=== PATIENT | male | born 1965 | race Caucasian/White ===

== ENCOUNTER → 2017-03-19 | Outpatient (CLI) | payer OTHER ==
[~2017-03-19] MED LIST: AMIO200T PO; ASCO10003 PO; ASPI-110 PO; COEN100T PO; FISH1000 PO; FURO40TA PO; LOSA50TA PO; METO25TA3 PO; PRAV80TA2 PO; SPIR25TA PO; VITA400C2 PO; VITA400C5 PO; XANA1TAB2 PO; XARE20TA PO
[2017-03-19 12:44] LABS: AUTOMATED NEUTROPHIL # 6.6 TH/MM3 (1.8-7.7); BASOPHIL # 0.1 TH/MM3 (0-0.2); BASOPHIL % 0.8 % (0.0-2.0); EOSINOPHIL # 0.1 TH/MM3 (0-0.4); EOSINOPHIL % 1.2 % (0.0-4.0); HEMATOCRIT 46.4 % (39.0-51.0); HEMO FLAGS DIFF FINAL; LYMPH % 27.4 % (9.0-44.0); LYMPHOCYTE # 2.9 TH/MM3 (1.0-4.8); MEAN CORPUSCULAR HEMOGLOBIN 33.6 PG (27.0-34.0); MEAN CORPUSCULAR HGB CONC 34.7 % (32.0-36.0); MONO % 8.9 % (0.0-8.0); NEUT % 61.7 % (16.0-70.0); PLATELET COUNT 246 TH/MM3 (150-450); RED BLOOD COUNT 4.78 MIL/MM3 (4.50-5.90); RED CELL DISTRIBUTION WIDTH 13.3 % (11.6-17.2); WHITE BLOOD COUNT 10.7 TH/MM3 (4.0-11.0)
[2017-03-19 13:20] LABS: ALT (GPT) 43 U/L (12-78)
[2017-03-19 13:25] LABS: ANION GAP 7 MEQ/L (5-15); AST (GOT) 34 U/L (15-37); BICARBONATE 25.6 MEQ/L (21.0-32.0); BLOOD UREA NITROGEN 12 MG/DL (7-18); CHLORIDE 100 MEQ/L (98-107); GLOMERULAR FILTRATION RATE 97 ML/MIN (>89); GLUCOSE,FASTING 93 MG/DL (74-99); SODIUM (NA) 133 MEQ/L (136-145)
[2017-03-19 13:30] LABS: ALKALINE PHOSPHATASE 97 U/L (45-117); HDL CHOLESTEROL 49.7 MG/DL (40.0-60.0); LDL CHOLESTEROL 95 MG/DL (0-99); TOTAL BILIRUBIN ADULT 0.6 MG/DL (0.2-1.0)
== END ==
LOC: CLAB 12:10
PROVIDERS: ATTEND Family Medicine
DX: I50.9 Heart failure, unspecified (principal); E66.9 Obesity, unspecified; Z79.01 Long term (current) use of anticoagulants; Z72.0 Tobacco use
CPT/HCPCS: 36415; 80053; 80061; 84443; 85025

== ENCOUNTER 2018-07-19 09:52 | Inpatient (IN) ==
--- NOTE | 2018-07-19 10:23 | ED ---
HPI General Chief Complaint: Chest Pain Stated Complaint: fast heart rate Time Seen by Provider: 07/19/18 10:02 Source: patient Mode of arrival: ambulatory Limitations: no limitations History of Present Illness HPI narrative: Is a 53-year-old male presents emerged from complaining of palpitations and heart racing. He is a history of A. fib status post ablation with pacemaker placement followed by Dr. Espinoza. Is not had problems with recurrent arrhythmia in the past couple years. He is not on any blood thinners at this point. He states symptoms are about 3 days ago, he had heart racing with heart rate up into the 140s-180s. He has had shortness of breath or dyspnea on exertion. No chest pain. No other complaints. Related Data Home Medications Medication Instructions Recorded Confirmed amiodarone 200 mg PO DAILY 07/19/18 07/19/18 aspirin 325 mg PO DAILY 07/19/18 07/19/18 cyanocobalamin (vitamin B-12) 2,000 mcg PO DAILY 07/19/18 07/19/18 [Vitamin B-12] furosemide [Lasix] 40 mg PO PRN 07/19/18 07/19/18 garlic 6,000 mg PO DAILY 07/19/18 07/19/18 metoprolol tartrate 50 mg PO BID 07/19/18 07/19/18 Allergies Allergy/AdvReac Type Severity Reaction Status Date / Time esmolol AdvReac Severe Hypotension Verified 07/19/18 10:04 Review of Systems ROS: all other systems reviewed are negative [facility] Medical History Medical History Afib (Acute) Irregular heart rate (Acute) Pacemaker (Acute) Atrial tachycardia (Acute) Surgical History Surgical History S/P ablation of atrial fibrillation (Acute) Social History Social History Substance History: No History of Abuse Second Hand Smoke Exposure: Yes Smoking Status: Current every day smoker Tobacco Type: Cigarettes How Often Do You Have a Drink Containing Alcohol: Never Recent Travel in [facility] within the Last 8 Weeks: No Recent Out of Country Travel within the Last 8 Weeks: No Immunization History Tetanus Immunization: >5 Years Exam Narrative Exam Narrative: GENERAL: Well-appearing 53-year-old man, no acute distress. SKIN: Focused skin assessment warm/dry. HEAD: Atraumatic. Normocephalic. EYES: Pupils equal and round. No scleral icterus. No injection or drainage. ENT: No nasal bleeding or discharge. Mucous membranes pink and moist. NECK: Trachea midline. No JVD. CARDIOVASCULAR: Heart rate rapid, regular. No appreciable murmurs. RESPIRATORY: No accessory muscle use. Clear to auscultation. Breath sounds equal bilaterally. GASTROINTESTINAL: Abdomen soft, non-tender, nondistended. Hepatic and splenic margins not palpable. MUSCULOSKELETAL: No obvious deformities. Trace edema. NEUROLOGICAL: Awake and alert. No obvious cranial nerve deficits. Motor grossly within normal limits. Normal speech. Course Reevaluation(s) Reevaluation #1: Spoke with Dr. Espinoza, recommend continue diltiazem drip, admission. Time: 11:10 Initial Documented Vital Signs Temperature 98.4 F 07/19/18 09:55 Pulse Rate 143 H 07/19/18 09:55 Respiratory Rate 18 07/19/18 09:55 Blood Pressure 133/88 07/19/18 09:55 Pulse Oximetry 98 07/19/18 09:55 Last Documented Vital Signs Temperature 97.7 F 07/19/18 11:46 Pulse Rate 96 H 07/19/18 11:46 Respiratory Rate 17 07/19/18 11:46 Blood Pressure 118/65 07/19/18 11:46 Pulse Oximetry 99 07/19/18 11:46 Medical Decision Making MDM Narrative Medical decision making narrative: 53-year-old man, presents with SVT, likely atrial flutter or atrial tachycardia, looks pale and diaphoretic. We will plan on admission, diltiazem, will likely need admission. Medical Screen Exam Complete: Yes Emergency Medical Condition: Yes Lab Data Result diagrams: 07/19/18 10:30 07/19/18 10:30 Lab Results 07/19/18 07/19/18 07/19/18 Range/Units 10:30 10:30 10:30 WBC 14.8 H (4.0-11.0) th/mm3 RBC 4.59 (4.50-5.90) mil/mm3 Hgb 15.5 (13.0-17.0) gm/dL Hct 46.1 (39.0-51.0) % MCV 100.3 H (80.0-100.0) fL MCH 33.7 (27.0-34.0) pg MCHC 33.6 (32.0-36.0) % RDW 13.6 (11.6-17.2) % Plt Count 236 (150-450) th/mm3 MPV 7.7 (7.0-11.0) fL Prelim Diff (Auto) Slide review pending Neut % (Auto) 46.8 (16.0-70.0) % Lymph % (Auto) 41.3 (9.0-44.0) % Dent % (Auto) 9.0 H (0.0-8.0) % Eos % (Auto) 2.1 (0.0-4.0) % Baso % (Auto) 0.8 (0.0-2.0) % Neut # (Auto) 7.0 (1.8-7.7) th/mm3 Lymph # (Auto) 6.1 H (1.0-4.8) th/mm3 Dent # (Auto) 1.3 H (0.0-0.9) th/mm3 Eos # (Auto) 0.3 (0.0-0.4) th/mm3 Baso # (Auto) 0.1 (0.0-0.2) th/mm3 WBC Differential Manual diff final Seg Neuts % (Manual) 40 (16-70) % Lymphocytes % (Manual) 51 H (9-44) % Monocytes % (Manual) 8 (0-8) % Eosinophils % (Manual) 1 (0-4) % Abs Neuts (Manual) 5.9 (1.8-7.7) th/mm3 Differential Comment . Platelet Estimate Normal (Normal) Platelet Morphology Normal (Normal) PT 11.7 H (9.8-11.6) sec INR 1.2 Ratio APTT 25.2 (24.3-30.1) sec Sodium 134 L (136-145) meq/L Potassium 5.4 H (3.5-5.1) meq/L Chloride 102 (98-107) meq/L Carbon Dioxide 26.7 (21.0-32.0) meq/L Anion Gap 5 (5-15) meq/L BUN 20 H (7-18) mg/dL Creatinine 1.36 H (0.60-1.30) mg/dL Estimated GFR 55 L (>89) mL/min Random Glucose 87 (74-106) mg/dL Calcium 9.0 (8.5-10.1) mg/dL Magnesium 2.1 (1.5-2.5) mg/dL Total Bilirubin 0.4 (0.2-1.0) mg/dL AST 34 (15-37) U/L ALT 30 (12-78) U/L Alkaline Phosphatase 89 (45-117) U/L Troponin I Less than 0.02 L (0.02-0.05) ng/mL Total Protein 8.3 H (6.4-8.2) g/dL Albumin 3.7 (3.4-5.0) g/dL Imaging Data Radiologist's impression: Chest X-Ray 07/19/18 10:19 CONCLUSION: Pacemaker in good position. ECG Data Attestation: I personally reviewed and interpreted this ECG as follows: Interpretation: Rapid narrow complex tachycardia rate of 142, likely atrial tachycardia or atrial flutter, some lateral depressions to suggest ischemia. Repeat EKG done at 10:43 AM: Narrow complex regular rhythm at a rate of 77 with a 2-1 block of what is likely underlying atrial tachycardia. No ischemia. Discharge Plan Discharge Disposition Patient Disposition: 30 Still Patient Physicians Team ED Provider: Evangelista Desir Primary Care Provider: UNKNOWN, Attending Provider: Naveed Rahman Other Providers: Parul Means Status ED Status: Admitted Patient
[2018-07-19 10:41] LABS: Baso # (Auto) 0.1 th/mm3 (0.0-0.2); Baso % (Auto) 0.8 % (0.0-2.0); Eos # (Auto) 0.3 th/mm3 (0.0-0.4); Eos % (Auto) 2.1 % (0.0-4.0); Hematocrit 46.1 % (39.0-51.0); Hemoglobin 15.5 gm/dL (13.0-17.0); Lymph # (Auto) 6.1 th/mm3 (1.0-4.8); Lymph % (Auto) 41.3 % (9.0-44.0); Mean Corpuscular HGB Conc 33.6 % (32.0-36.0); Mean Corpuscular Hemoglobin 33.7 pg (27.0-34.0); Mean Corpuscular Volume 100.3 fL (80.0-100.0); Mean Platelet Volume 7.7 fL (7.0-11.0); Mono # (Auto) 1.3 th/mm3 (0.0-0.9); Neut % (Auto) 46.8 % (16.0-70.0); Platelet Count 236 th/mm3 (150-450); Red Blood Count 4.59 mil/mm3 (4.50-5.90); Red Cell Distribution Width 13.6 % (11.6-17.2); White Blood Count 14.8 th/mm3 (4.0-11.0)
--- NOTE | 2018-07-19 10:45 | XR ---
EXAM DATE: 07/19/2018 10:41 AM EDT AGE/SEX: 53 years / Male INDICATIONS: Chest pain. CLINICAL DATA: This is the patient's initial encounter. Patient reports that signs and symptoms have been present for 1 day and indicates a pain score of 4/10. MEDICAL/SURGICAL HISTORY: Congestive heart failure. Pacemaker. COMPARISON: [facility] [place], CHEST SINGLE AP, 07/31/2016. . FINDINGS: A single AP view of the chest demonstrates the lungs to be symmetrically aerated without evidence of mass, infiltrate or effusion. The cardiomediastinal contours are unremarkable. Osseous structures a re intact. Left subclavian single lead pacer in good position. No visible pneumothorax. CONCLUSION: Pacemaker in good position. Electronically signed by: Evangelista Clark MD 07/19/2018 10:43 AM EDT
[2018-07-19 10:49] LABS: Activated Partial Thrombo Time 25.2 sec (24.3-30.1); INR 1.2 Ratio; Prothrombin Time 11.7 sec (9.8-11.6)
[2018-07-19 10:59] LABS: Albumin 3.7 g/dL (3.4-5.0); Anion Gap 5 meq/L (5-15); Aspartate Aminotransferase 34 U/L (15-37); Blood Urea Nitrogen 20 mg/dL (7-18); Carbon Dioxide 26.7 meq/L (21.0-32.0); Chloride 102 meq/L (98-107); Glomerular Filtration Rate 55 mL/min (>89); Glucose,Random 87 mg/dL (74-106); Magnesium 2.1 mg/dL (1.5-2.5); Potassium 5.4 meq/L (3.5-5.1); Sodium 134 meq/L (136-145)
[2018-07-19 11:00] LABS: Alanine Aminotransferase 30 U/L (12-78)
[2018-07-19 11:03] LABS: Alkaline Phosphatase 89 U/L (45-117); Total Protein 8.3 g/dL (6.4-8.2)
[2018-07-19 11:20] LABS: Eosinophils 1 % (0-4); Lymphocytes 51 % (9-44); Monocytes 8 % (0-8); Platelet Estimate Normal (Normal); Platelet Morphology Normal (Normal)
--- NOTE | 2018-07-19 12:20 | P.HPFP ---
History of Present Illness Primary Care Physician: UNKNOWN <Naveed Rahman L - 07/19/18 17:57> UNKNOWN <Juan LuisCalistagarry Gonzalez T - 07/19/18 12:20> History of Present Illness: 53-year-old male with a history of CHF (last echo per EMR 06/30/16: EF 10 to 15% ) and a flutter s/p cardiac ablation and a.fib w/ RVR s/p cardiac conversion 07/05, and AICD in situ, presents to the ED for palpitations. Patient states that his heart was racing for the last 3 days. Pulse has been 143 but has gone up to 150s. Patient tried to walk to bring his heart rate down. Patient decided to come to the ED after not being able to sleep due to palpitations. He states that he is not currently on blood thinners due to cost. States that his amiodarone pill was changed to generic brand 2 months ago and thinks that this might be the cause of it. Endorses slight shortness of breath on exertion, lightheadedness, and diaphoresis. Denies fevers, chest pain, nausea vomiting, abdominal pain, urinary symptoms, weakness. PMH: Childhood heart murmur, Diagnosed with afib in April 2 years ago. Has had a fib and a flutter. Meds: Aspirin, tumeric, Fish oils, garlic, Amio 200, Metoprolol, and furosemide PRN, Proc/ Surgeries: Pacer/ defib, Right knee, cardioversion X2 FHx: Mother 76 with a-fib, Father passed at 76 from "weak heart and infection from foot", 2 kids: 33, 21 both healthy. Allergies: Esmolol Social: [place] disability, lives with . works at [employer]. Patient retired from [employer] work. Smoked since 15yr old, 4 packs a year for the last 10 years. Switched to pipe (equivalent to cigarettes. 7 months ago. Used to be a heavy drinker, used to drink a 12 pack every night 8 years. Now drinks 8 ounces a day. Used drugs when he was young [age], never IV drugs. Mostly speed. <Juan LuisCalista Gonzalez T - 07/19/18 17:37> - Diagnosis (1) Arrhythmia (2) CHF (congestive heart failure) (3) REMY (acute kidney injury) (4) Leukocytosis (5) Nutrition, metabolism, and development symptoms <Naveed Rahman 07/19/18 17:57> (1) Arrhythmia (2) CHF (congestive heart failure) (3) REMY (acute kidney injury) (4) Leukocytosis (5) Nutrition, metabolism, and development symptoms <Calista Mcknight T 07/19/18 17:28> Inpatient Certification: I certify that the inpatient services were ordered in accordance with Medicare regulations governing the order. This includes certification that hospital inpatient services are reasonable and necessary and in the case of services not specified as inpatient-only under 42 CFR 419.22(n), that they are appropriately provided as inpatient services in accordance to with the 2-midnight benchmark under 43 CFR 412.3(e) <Naveed Rahman 07/19/18 17:57> I certify that the inpatient services were ordered in accordance with Medicare regulations governing the order. This includes certification that hospital inpatient services are reasonable and necessary and in the case of services not specified as inpatient-only under 42 CFR 419.22(n), that they are appropriately provided as inpatient services in accordance to with the 2-midnight benchmark under 43 CFR 412.3(e) <Calista Mcknight Gonzalez 07/19/18 12:20> Estimated Total Length of Stay (Days): 2 <Calista Mcknight Gonzalez 07/19/18 12:20> Plans for Post Hospital Care: Not yet determined <Calista Mcknight Gonzalez 07/19/18 12:20> Review of Systems Constitutional: Reports weight gain, Denies fever(s) <Calista Mcknight Gonzalez 07/19 17:20> Eyes: Denies change in vision <VanMamtan Gonzalez T 07/19/18 17:20> Ears, Nose, Mouth, and Throat: Denies sore throat <VanMamtan Gonzalez 17:20> Cardiovascular: Denies chest pain <VanMamtan Gonzalez T 07/19/18 17:20> Respiratory: Denies cough, Denies shortness of breath <Mamta Mcknightn Gonzalez T 17:20> Gastrointestinal: Denies abdominal pain <VanMamtan Gonzalez T 07/19/18 17:20> Genitourinary: Denies difficulty urinating <Calista Mcknight T - 07/19/18 17:20> Musculoskeletal: Denies body aches <Calista Mcknight Gonzalez T - 07/19/18 17:20> Skin/Breast: Denies rash <Calista Mcknight Gonzalez T - 07/19/18 17:20> Neurologic: Denies headache(s) <Calista Mcknight T - 07/19/18 17:20> Endocrine: Reports excessive sweating <Calista Mcknight T - 07/19/18 17:20> PMFSH - History History Provided By: Patient <Calista Mcknight T - 07/19/18 12:20> - Medical History Medical History: Medical History (Last Updated 07/19/18 @ 10:25 by Evangelista Desir MD) Afib Irregular heart rate Pacemaker Atrial tachycardia <JosiahNaveed Winston - 07/19/18 17:57> Medical History (Last Updated 07/19/18 @ 10:25 by Evangelista Desir MD) Afib Irregular heart rate Pacemaker Atrial tachycardia <Calista Mcknight T - 07/19/18 12:20> - Surgical History Surgical History: Surgical History (Last Reviewed 07/19/18 @ 10:22 by Evangelista Desir MD) S/P ablation of atrial fibrillation <JosiahNaveed Winston - 07/19/18 17:57> Surgical History (Last Reviewed 07/19/18 @ 10:22 by Evangelista Desir MD) S/P ablation of atrial fibrillation <Juan LuisMamtagarry Gonzalez Lavonne - 07/19/18 12:20> - Family History Family History: Family History (Last Updated 07/19/18 @ 17:20 by Calista Mcknight MD, R2) Mother Atrial fibrillation <Naveed Rahman - 07/19/18 17:57> Family History (Last Updated 07/19/18 @ 17:20 by Calista Mcknight MD, R2) Mother Atrial fibrillation <Pablo Mcknightyessi Gonzalez Lavonne - 07/19/18 17:20> - Social History I have reviewed the patient's Social History: Yes <Mamta Mcknightgarry Gonzalez Lavonne - 17:20> - Tobacco History Second Hand Smoke Exposure: Yes <Calista Mcknight T - 07/19/18 12:20> Tobacco Use In Past 30 Days: Yes <Calista Mcknight - 07/19/18 12:20> Smoking Status: Current every day smoker <Calista Mcknight - 07/19/18 12:20> Tobacco Type: Cigarettes, Pipe <Calista Mcknight - 07/19/18 17:20> - Alcohol History How Often Do You Have a Drink Containing Alcohol: Never <Calista Mcknight - 12:20> - Substance Use History Substance History: No History of Abuse <Calista Mcknight - 07/19/18 12:20> - Travel History Recent Travel in the [facility] Within the Last 8 Weeks: No <Calista Mcknight 07/19 12:20> Recent Travel Out of the Country Within the Last 8 Weeks: No <Calista Mcknight 07/19/18 12:20> - Immunization History Tetanus Immunization: >5 Years <Calista Mcknight 07/19/18 12:20> Medications and Allergies Allergies Allergy/AdvReac Type Severity Reaction Status Date / Time esmolol AdvReac Severe Hypotension Verified 07/19/18 10:04 <Naveed Rahman 07/19/18 17:57> Home Medications Medication Instructions Recorded Confirmed Type amiodarone 200 mg PO DAILY 07/19/18 07/19/18 History ascorbic acid (vitamin C) [Vitamin 1,000 mg PO DAILY 07/19/18 07/19/18 History C] aspirin 325 mg PO DAILY 07/19/18 07/19/18 History cyanocobalamin (vitamin B-12) 2,000 mcg PO DAILY 07/19/18 07/19/18 History [Vitamin B-12] furosemide [Lasix] 40 mg PO PRN 07/19/18 07/19/18 History garlic 6,000 mg PO DAILY 07/19/18 07/19/18 History magnesium 250 mg PO DAILY 07/19/18 07/19/18 History metoprolol tartrate 50 mg PO BID 07/19/18 07/19/18 History vitamin E 200 unit PO DAILY 07/19/18 07/19/18 History <Naveed Rahman - 07/19/18 17:57> Active Medications: Active Medications Amiodarone HCl (Cordarone) 200 mg PO DAILY [facility] Aspirin (Aspirin) 325 mg PO DAILY [facility] Enoxaparin Sodium (Lovenox Inj) 40 mg SQ Q24H JADE Last Admin: 07/19/18 13:11 Dose: 40 mg Furosemide (Lasix) 40 mg PO BID@0900,1800 JADE Diltiazem HCl 125 mg/ Sodium (Chloride) 125 mls @ 5 mls/hr IV.CONT TITRATE PRN ; Protocol PRN Reason: Per Protocol Last Titration: 07/19/18 16:32 Dose: 10 mg/hr, 10 mls/hr Sodium Chloride (Ns Inj) 1,000 mls @ 80 mls/hr IV.CONT .[id number] JADE Metoprolol Tartrate (Lopressor) 50 mg PO BID JADE Sodium Chloride (Ns Flush) 2 ml IV.FLUSH UNSCH PRN PRN Reason: FLUSH AFTER USING IV ACCESS Last Admin: 07/19/18 10:25 Dose: 2 ml <Naveed Rahman L - 07/19/18 17:57> Active Medications Diltiazem HCl 125 mg/ Sodium (Chloride) 125 mls @ 5 mls/hr IV.CONT TITRATE PRN ; Protocol PRN Reason: Per Protocol Sodium Chloride (Ns Flush) 2 ml IV.FLUSH UNSCH PRN PRN Reason: FLUSH AFTER USING IV ACCESS Last Admin: 07/19/18 10:25 Dose: 2 ml <Calista Mcknight T - 07/19/18 12:20> Exam Vital signs: Vital Signs 07/19/18 09:55 07/19/18 10:19 07/19/18 10:36 Temperature 98.4 F 98 F 98 F Pulse Rate 143 H 141 H 95 H Respiratory Rate 18 20 18 Blood Pressure 133/88 126/88 115/60 Pulse Oximetry 98 99 99 07/19/18 11:03 07/19/18 11:46 07/19/18 12:41 Temperature 97.7 F 97.7 F 97.9 F Pulse Rate 95 H 96 H 100 H Respiratory Rate 17 17 18 Blood Pressure 103/62 118/65 109/61 Pulse Oximetry 99 99 98 07/19/18 17:00 07/19/18 17:25 Temperature 97.8 F 97.5 F L Pulse Rate 96 H 65 Respiratory Rate 18 20 Blood Pressure 138/83 134/105 H Pulse Oximetry 97 Intake & Output 07/18/18 07/19/18 07/19/18 18:59 06:59 18:59 Output Total 800 / 800 Balance -800 / -800 Weight 113 kg Output: Urine 800 / 800 Other: # Voids 1 Weight On Admission 113 kg <JosiahNaveed Winston - 07/19/18 17:57> Vital Signs 07/19/18 09:55 07/19/18 10:19 07/19/18 10:36 Temperature 98.4 F 98 F 98 F Pulse Rate 143 H 141 H 95 H Respiratory Rate 18 20 18 Blood Pressure 133/88 126/88 115/60 Pulse Oximetry 98 99 99 07/19/18 11:03 07/19/18 11:46 Temperature 97.7 F 97.7 F Pulse Rate 95 H 96 H Respiratory Rate 17 17 Blood Pressure 103/62 118/65 Pulse Oximetry 99 99 Intake & Output 07/18/18 07/19/18 07/19/18 18:59 06:59 18:59 Weight 113.398 kg <Calista Mcknight T - 07/19/18 12:20> Narrative: General: Pleasant, male in no acute distress HEENT: PERRLA, EOMI, throat clear, no lymphadenopathy Cardio: Irregular rate and rhythm, 3 out of 6 systolic murmur Pulmonary: There to auscultation bilaterally, no wheezes or crackles Abdomen: Soft, nontender, nondistended, positive bowel sounds, no rebound, no guarding Extremities: No cyanosis, trace edema Neuro: Awake and alert x3 <Calista Mcknight T - 07/19/18 17:28> Results - Labs Result diagrams: 07/19/18 10:30 07/19/18 10:30 <Naveed Rahman - 07/19/18 17:57> Abnormal lab results 07/19/18 07/19/18 07/19/18 Range/Units 10:30 10:30 10:30 WBC 14.8 H (4.0-11.0) th/mm3 MCV 100.3 H (80.0-100.0) fL [place] % (Auto) 9.0 H (0.0-8.0) % Lymph # (Auto) 6.1 H (1.0-4.8) th/mm3 [place]kins # (Auto) 1.3 H (0.0-0.9) th/mm3 Lymphocytes % (Manual) 51 H (9-44) % PT 11.7 H (9.8-11.6) sec Sodium 134 L (136-145) meq/L Potassium 5.4 H (3.5-5.1) meq/L BUN 20 H (7-18) mg/dL Creatinine 1.36 H (0.60-1.30) mg/dL Estimated GFR 55 L (>89) mL/min Troponin I Less than 0.02 L (0.02-0.05) ng/mL Total Protein 8.3 H (6.4-8.2) g/dL Short CBC 07/19/18 Range/Units 10:30 WBC 14.8 H (4.0-11.0) th/mm3 Hgb 15.5 (13.0-17.0) gm/dL Hct 46.1 (39.0-51.0) % Plt Count 236 (150-450) th/mm3 BMP 07/19/18 10:30 Sodium 134 L Potassium 5.4 H Chloride 102 Carbon Dioxide 26.7 BUN 20 H Creatinine 1.36 H Calcium 9.0 Cardiac Enzymes 07/19/18 Range/Units 10:30 Troponin I Less than 0.02 L (0.02-0.05) ng/mL Liver Function 07/19/18 Range/Units 10:30 Total Bilirubin 0.4 (0.2-1.0) mg/dL AST 34 (15-37) U/L ALT 30 (12-78) U/L Alkaline Phosphatase 89 (45-117) U/L Albumin 3.7 (3.4-5.0) g/dL <Naveed Rahman L - 07/19/18 17:57> Abnormal lab results 07/19/18 07/19/18 07/19/18 Range/Units 10:30 10:30 10:30 WBC 14.8 H (4.0-11.0) th/mm3 MCV 100.3 H (80.0-100.0) fL [place] % (Auto) 9.0 H (0.0-8.0) % Lymph # (Auto) 6.1 H (1.0-4.8) th/mm3 [place]kins # (Auto) 1.3 H (0.0-0.9) th/mm3 Lymphocytes % (Manual) 51 H (9-44) % PT 11.7 H (9.8-11.6) sec Sodium 134 L (136-145) meq/L Potassium 5.4 H (3.5-5.1) meq/L BUN 20 H (7-18) mg/dL Creatinine 1.36 H (0.60-1.30) mg/dL Estimated GFR 55 L (>89) mL/min Troponin I Less than 0.02 L (0.02-0.05) ng/mL Total Protein 8.3 H (6.4-8.2) g/dL Short CBC 07/19/18 Range/Units 10:30 WBC 14.8 H (4.0-11.0) th/mm3 Hgb 15.5 (13.0-17.0) gm/dL Hct 46.1 (39.0-51.0) % Plt Count 236 (150-450) th/mm3 BMP 07/19/18 10:30 Sodium 134 L Potassium 5.4 H Chloride 102 Carbon Dioxide 26.7 BUN 20 H Creatinine 1.36 H Calcium 9.0 Cardiac Enzymes 07/19/18 Range/Units 10:30 Troponin I Less than 0.02 L (0.02-0.05) ng/mL Liver Function 07/19/18 Range/Units 10:30 Total Bilirubin 0.4 (0.2-1.0) mg/dL AST 34 (15-37) U/L ALT 30 (12-78) U/L Alkaline Phosphatase 89 (45-117) U/L Albumin 3.7 (3.4-5.0) g/dL <Calista Mcknight T - 07/19/18 12:20> - Imaging Impressions Chest X-Ray 07/19/18 10:19 CONCLUSION: Pacemaker in good position. <Naveed Rahman - 07/19/18 17:57> Impressions Chest X-Ray 07/19/18 10:19 CONCLUSION: Pacemaker in good position. <Calista Mcknight T - 07/19/18 12:20> Caprini VTE Risk Assessment Caprini VTE Risk Assessment: Moderate/High Risk (score >= 2) <Calista Mcknight T - 07/19/18 17:28> Caprini Risk Assessment Model: Point Value = 1 Point Value = 2 Point Value = 3 Point Value = 5 Age 41-60 Minor surgery BMI > 25 kg/m2 Swollen legs Varicose veins or History of unexplained or recurrent spontaneous Oral contraceptives or hormone replacement Sepsis (< 1 month) Serious lung disease, including pneumonia (< 1 month) Abnormal pulmonary function Acute myocardial infarction Congestive heart failure (< 1 month) History of inflammatory bowel disease Medical patient at bed rest Age 61-74 Arthroscopic surgery Major open surgery (> 45 min) Laparoscopic surgery (> 45 min) Malignancy Confined to bed (> 72 hours) Immobilizing plaster cast Central venous access Age >= 75 History of VTE Family history of VTE Factor V Leiden Prothrombin [id number] Lupus anticoagulant Anticardiolipin antibodies Elevated serum homocysteine Heparin-induced thrombocytopenia Other congenital or acquired thrombophilia Stroke (< 1 month) Elective arthroplasty Hip, pelvis, or leg fracture Acute spinal cord injury (< 1 month) <Naveed Rahman - 07/19/18 17:57> Point Value = 1 Point Value = 2 Point Value = 3 Point Value = 5 Age 41-60 Minor surgery BMI > 25 kg/m2 Swollen legs Varicose veins or History of unexplained or recurrent spontaneous Oral contraceptives or hormone replacement Sepsis (< 1 month) Serious lung disease, including pneumonia (< 1 month) Abnormal pulmonary function Acute myocardial infarction Congestive heart failure (< 1 month) History of inflammatory bowel disease Medical patient at bed rest Age 61-74 Arthroscopic surgery Major open surgery (> 45 min) Laparoscopic surgery (> 45 min) Malignancy Confined to bed (> 72 hours) Immobilizing plaster cast Central venous access Age >= 75 History of VTE Family history of VTE Factor V Leiden Prothrombin [id number] Lupus anticoagulant Anticardiolipin antibodies Elevated serum homocysteine Heparin-induced thrombocytopenia Other congenital or acquired thrombophilia Stroke (< 1 month) Elective arthroplasty Hip, pelvis, or leg fracture Acute spinal cord injury (< 1 month) <Calista Mcknight T - 07/19/18 12:20> Prophylaxis Regimen: Total Risk Factor Score Risk Level Prophylaxis Regimen 0-1 Low Early ambulation 2 Moderate Order ONE of the following: *Sequential Compression Device (SCD) *Heparin 5000 units SQ BID 3-4 Higher Order ONE of the following medications: *Heparin 5000 units SQ TID *Enoxaparin/Lovenox 40 mg SQ daily (WT < 150 kg, CrCl > 30 mL/min) *Enoxaparin/Lovenox 30 mg SQ daily (WT < 150 kg, CrCl > 10-29 mL/min) *Enoxaparin/Lovenox 30 mg SQ BID (WT < 150 kg, CrCl > 30 mL/min) AND/OR *Sequential Compression Device (SCD) 5 or more Highest Order ONE of the following medications: *Heparin 5000 units SQ TID (Preferred with Epidurals) *Enoxaparin/Lovenox 40 mg SQ daily (WT < 150 kg, CrCl > 30 mL/min) *Enoxaparin/Lovenox 30 mg SQ daily (WT < 150 kg, CrCl > 10-29 mL/min) *Enoxaparin/Lovenox 30 mg SQ BID (WT < 150 kg, CrCl > 30 mL/min) AND *Sequential Compression Device (SCD) <Naveed Rahman L - 07/19/18 17:57> Total Risk Factor Score Risk Level Prophylaxis Regimen 0-1 Low Early ambulation 2 Moderate Order ONE of the following: *Sequential Compression Device (SCD) *Heparin 5000 units SQ BID 3-4 Higher Order ONE of the following medications: *Heparin 5000 units SQ TID *Enoxaparin/Lovenox 40 mg SQ daily (WT < 150 kg, CrCl > 30 mL/min) *Enoxaparin/Lovenox 30 mg SQ daily (WT < 150 kg, CrCl > 10-29 mL/min) *Enoxaparin/Lovenox 30 mg SQ BID (WT < 150 kg, CrCl > 30 mL/min) AND/OR *Sequential Compression Device (SCD) 5 or more Highest Order ONE of the following medications: *Heparin 5000 units SQ TID (Preferred with Epidurals) *Enoxaparin/Lovenox 40 mg SQ daily (WT < 150 kg, CrCl > 30 mL/min) *Enoxaparin/Lovenox 30 mg SQ daily (WT < 150 kg, CrCl > 10-29 mL/min) *Enoxaparin/Lovenox 30 mg SQ BID (WT < 150 kg, CrCl > 30 mL/min) AND *Sequential Compression Device (SCD) <Calista Mcknight T - 07/19/18 12:20> Assessment and Plan - Assessment (1) Arrhythmia Code(s): I49.9 - Cardiac arrhythmia, unspecified Status: Acute (2) CHF (congestive heart failure) Code(s): I50.9 - Heart failure, unspecified Status: Acute (3) REMY (acute kidney injury) Code(s): N17.9 - Acute kidney failure, unspecified Status: Acute (4) Leukocytosis Code(s): D72.829 - Elevated white blood cell count, unspecified Status: Acute (5) Nutrition, metabolism, and development symptoms Code(s): R63.8 - Other symptoms and signs concerning food and fluid intake Status: Acute <Naveed Rahman - 07/19/18 17:57> (1) Arrhythmia Code(s): I49.9 - Cardiac arrhythmia, unspecified Status: Acute Plan: 53-year-old male with a history of CHF (last echo per EMR 06/30/16: EF 10 to 15% ) and a flutter s/p cardiac ablation and a.fib w/ RVR s/p cardiac conversion 07/05, and AICD in situ, presents to the ED for palpitations. [place], Dr. Brandt, consulted, appreciate recommendations EKG on admission, SVT, HR of 142, troponin less than 0.02 Continue to trend EKG and troponin q6h Cardiac telemetry Continue diltiazem drip, titrate as needed TSH/T4 wnl Lovenox for anticoagulation (2) CHF (congestive heart failure) Code(s): I50.9 - Heart failure, unspecified Status: Acute Plan: Last Echo per EMR 06/30/16: EF 10-15% Caution with fluids (3) REMY (acute kidney injury) Code(s): N17.9 - Acute kidney failure, unspecified Status: Acute Plan: BUN 20 and Cr 1.26 on admission Baseline: cr 0.83 on 03/19/17 NS 80mls/hr- less than maintenance due to CHF (4) Leukocytosis Code(s): D72.829 - Elevated white blood cell count, unspecified Status: Acute Plan: Elevated WBC 14.8 on admission, no source of infection Patient is afebrile. WBC most likely elevated due to cardiac stress UA and reflex UC pending LA pending continue to monitor (5) Nutrition, metabolism, and development symptoms Code(s): R63.8 - Other symptoms and signs concerning food and fluid intake Status: Acute Plan: Fluids: 80mls/hr Diet: Cardiac diet vitals q4, monitor I & Os DVT ppx: Lovenox <Calista Mcknight T - 07/19/18 17:28> - Attending Attestation The exam, history, and the medical decision-making described in the above note were completed with the assistance of the resident physician. I reviewed and agree with the findings presented. I attest that I had a [id number] encounter with the patient on the same day, and personally performed and documented my assessment and findings in the medical record. Discussed and evaluated patient with residents. Patient with history of atrial fibrillation/ flutter is presenting today with palpitations and atrial flutter. Will admit for rate control, anticoagulation (CHADSVASC 2), will consult his radiology scheduler as well. Has pacemaker, AICD, history of ablations. Mildly symptomatic at this time, also with some prerenal REMY likely from decreased perfusion due to arrhythmia. <Naveed Rahman L - 07/19/18 17:57>
[2018-07-19] MEDS ORDERED: Furosemide 40 MG Tablet PO SCH (13:00)
[2018-07-19 13:38] LABS: Free T4 (Free Thyroxine) 1.17 ng/dL (0.76-1.46); Thyroid Stimulating Hormone 2.74 uIU/mL (0.358-3.740); Triiodothyronine (T3) Free 2.96 pg/mL (2.18-3.98)
[2018-07-19] MEDS ORDERED: Enoxaparin Inj 40 MG/0.4 ML Syringe SQ SCH (14:00)
[2018-07-19] MEDS: dilTIAZem Inj 125 MG in Sodium Chlor 0.9% Inj 100 ML IV.CONT PRN (14:57)
--- NOTE | 2018-07-19 15:55 | ECG ---
Date Performed: 07/19/2018 Time Performed: 10:43:33 PTAGE: 53 years EKG: Sinus rhytm with first degree AV block Left anterior fascicular block Intraventricular cond uction delay INTRAVENTRICULAR CONDUCTION DELAY ABNORMAL ECG PREVIOUS TRACING : 07/29/2016 18.56 DOCTOR: Brice Lei Interpretating Date/Time 07/19/2018 15:54:58
--- NOTE | 2018-07-19 15:55 | ECG ---
Date Performed: 07/19/2018 Time Performed: 10:09:19 PTAGE: 53 years EKG: SVT with left anterior fasicular block Intraventricular conduction delay Consider atrial fl utter LEFT ANTERIOR FASCICULAR BLOCK ST DEVIATION AND MODERATE T-WAVE ABNORMALITY, CONSIDER LATERAL I SCHEMIA ABNORMAL ECG PREVIOUS TRACING : 07/29/2016 18.56 DOCTOR: Brice Lei Interpretating Date/Time 07/19/2018 15:53:30
[2018-07-19] MEDS: Sod Chloride 0.9% Inj 1,000 ML IV.CONT SCH (18:06)
[2018-07-19] MEDS: Metoprolol Tartrate 50 MG Tablet PO SCH (21:36)
[2018-07-19 23:14] LABS: Bilirubin,Urine Negative (Negative); Clarity,Urine Clear (Clear); Color,Urine Yellow (Yellw/Straw); Glucose,Urine (UA) Negative (Negative); Leukocyte Esterase,Urine Negative (Negative); Nitrite,Urine Negative (Negative); Specific Gravity,Urine 1.014 (1.002-1.035)
[2018-07-20] MEDS: dilTIAZem Inj 125 MG in Sodium Chlor 0.9% Inj 100 ML IV.CONT PRN (03:03)
[2018-07-20] MEDS: Sod Chloride 0.9% Inj 1,000 ML IV.CONT SCH (06:28)
--- NOTE | 2018-07-20 07:22 | MB ---
cc: Parul Means MD DATE: 07/19/2018 REASON FOR CONSULTATION: Atrial fibrillation with fast ventricular response. Atrial tachyarrhythmia. HISTORY OF PRESENT ILLNESS: Mr. Larsen is 53 years old gentleman with history of congestive heart failure, cardiomyopathy, atrial fibrillation, previous ablation, ejection fraction improved since ablation that was around 2.5 years ago. The gentleman was doing well until recently when began with palpitation. He was having also shortness of breath. On hospitalization, he was found with atrial fibrillation, atrial tachyarrhythmia with fast ventricular response. Cardizem IV was initiated. I was consulted for evaluation and management. The chart was reviewed. The patient was evaluated. I discussed the case extensively over the phone with also. ALLERGIES: ESMOLOL. SOCIAL HISTORY: The patient still smokes a pack, drinks at least 8 ounces of beer a day. FAMILY HISTORY: Noncontributory to his current medical condition. MEDICATIONS: Currently, he is on amiodarone. He is on Cardizem IV. He is on Lasix, Lovenox, metoprolol. REVIEW OF SYSTEMS: Currently feeling better, but he is having tachyarrhythmia. No chest pain, no chest discomfort. PHYSICAL EXAMINATION: GENERAL: Alert, fully oriented. VITAL SIGNS: His blood pressure 111/62, pulse 106, respiratory rate 20. LUNGS: Ventilated. CARDIOVASCULAR: S1, S2 regular at this point. ABDOMEN: Obese. No mass or bruit. EXTREMITIES: No edema. DIAGNOSTIC DATA: Electrocardiogram, atrial fibrillation, atrial tachyarrhythmia. LABORATORY DATA: Hemoglobin 15.5, white blood cell 14.8, INR 1.2. Creatinine is 1.36, potassium 4.4. 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 He had congestive heart failure. Atrial fibrillation was . The gentleman significantly improved as well as his ejection fraction. He is back in atrial tachyarrhythmia. Atrial fibrillation. He is not on anticoagulation. At this point, I am going to discontinue aspirin. I am going to initiate Eliquis 5 mg twice a day. Creatinine is 1.34. The goal at this point is to control the heart rate. We will have the patient on anticoagulation for 3 weeks and then schedule ablation, but if heart rate cannot be controlled during hospitalization, then we will do a transesophageal echo and discussed with the patient the risks and benefit of ablation with 2-3 weeks of anticoagulation. We will continue monitoring during hospitalization. MD RYAN Munguia/katja , 08:31 PM , 08:42 PM
[2018-07-20] MEDS: Metoprolol Tartrate 50 MG Tablet PO SCH ×2 (08:08→20:33)
[2018-07-20] MEDS: Amiodarone 200 MG Tablet PO SCH (08:08)
[2018-07-20] MEDS ORDERED: Aspirin 325 MG Tablet PO SCH (09:00)
[2018-07-20] MEDS: Furosemide 40 MG Tablet PO SCH ×2 (09:16→18:01)
[2018-07-20] MEDS: dilTIAZem 60 MG Tablet PO SCH ×4 (09:16→23:55)
[2018-07-20 10:18] LABS: Baso # (Auto) 0.1 th/mm3 (0.0-0.2); Baso % (Auto) 0.7 % (0.0-2.0); Eos # (Auto) 0.2 th/mm3 (0.0-0.4); Eos % (Auto) 1.7 % (0.0-4.0); Hematocrit 42.3 % (39.0-51.0); Hemoglobin 14.3 gm/dL (13.0-17.0); Lymph # (Auto) 4.5 th/mm3 (1.0-4.8); Lymph % (Auto) 34.8 % (9.0-44.0); Mean Corpuscular HGB Conc 33.8 % (32.0-36.0); Mean Corpuscular Hemoglobin 33.6 pg (27.0-34.0); Mean Corpuscular Volume 99.4 fL (80.0-100.0); Mean Platelet Volume 8.2 fL (7.0-11.0); Mono % (Auto) 7.8 % (0.0-8.0); Neut # (Auto) 7.1 th/mm3 (1.8-7.7); Platelet Count 202 th/mm3 (150-450); Red Blood Count 4.26 mil/mm3 (4.50-5.90); Red Cell Distribution Width 13.3 % (11.6-17.2); White Blood Count 12.9 th/mm3 (4.0-11.0)
[2018-07-20 10:56] LABS: Albumin 3.4 g/dL (3.4-5.0); Aspartate Aminotransferase 21 U/L (15-37); Blood Urea Nitrogen 13 mg/dL (7-18); Chloride 107 meq/L (98-107); Glomerular Filtration Rate Greater Than 89 mL/min (>89); Potassium 4.2 meq/L (3.5-5.1); Sodium 141 meq/L (136-145)
[2018-07-20 11:12] LABS: Alanine Aminotransferase 28 U/L (12-78); Alkaline Phosphatase 80 U/L (45-117); Anion Gap 8 meq/L (5-15); Calcium 8.5 mg/dL (8.5-10.1); Carbon Dioxide 26.1 meq/L (21.0-32.0); Glucose,Random 82 mg/dL (74-106); Total Protein 7.3 g/dL (6.4-8.2)
--- NOTE | 2018-07-20 11:58 | P.PNFP ---
Subjective Interval history: No acute events overnight. Cardiac telemetry reviewed. Patient lying in bed and watching TV. at bedside. Diltazem drip discontinued. Transition to PO diltiazem. Patient states that he spoke with the tank furnace operator yesterday. Patient states that he is doing a lot better. Denies palpitations, chest pain, shortness of breath, nausea vomiting, and abdominal pain. <Juan LuisCalistayessi Gonzalez T - 07/20/18 13:43> Results - Labs Result diagrams: 07/20/18 07:59 07/20/18 07:59 <Naveed Rahman L - 07/20/18 15:58> Abnormal lab results 07/19/18 07/20/18 Range/Units 19:29 07:59 WBC 12.9 H (4.0-11.0) th/mm3 RBC 4.26 L (4.50-5.90) mil/mm3 [place] # (Auto) 1.0 H (0.0-0.9) th/mm3 Troponin I Less than 0.02 L (0.02-0.05) ng/mL Short CBC 07/20/18 Range/Units 07:59 WBC 12.9 H (4.0-11.0) th/mm3 Hgb 14.3 (13.0-17.0) gm/dL Hct 42.3 (39.0-51.0) % Plt Count 202 (150-450) th/mm3 BMP 07/20/18 07:59 Sodium 141 Potassium 4.2 D Chloride 107 Carbon Dioxide 26.1 BUN 13 Creatinine 0.86 Calcium 8.5 Cardiac Enzymes 07/19/18 Range/Units 19:29 Troponin I Less than 0.02 L (0.02-0.05) ng/mL Liver Function 07/20/18 Range/Units 07:59 Total Bilirubin 0.4 (0.2-1.0) mg/dL AST 21 (15-37) U/L ALT 28 (12-78) U/L Alkaline Phosphatase 80 (45-117) U/L Albumin 3.4 (3.4-5.0) g/dL Urine 07/19/18 Range/Units 20:00 Urine Color Yellow (Yellw/Straw) Urine Clarity Clear (Clear) Urine pH 6.0 (5.0-8.5) Ur Specific [place] 1.014 (1.002-1.035) Urine Protein Negative (Neg-Trace) mg/dL Urine Glucose (UA) Negative (Negative) mg/dL <Naveed Rahman L - 07/20/18 15:58> Abnormal lab results 07/19/18 07/20/18 Range/Units 19:29 07:59 WBC 12.9 H (4.0-11.0) th/mm3 RBC 4.26 L (4.50-5.90) mil/mm3 [place] # (Auto) 1.0 H (0.0-0.9) th/mm3 Troponin I Less than 0.02 L (0.02-0.05) ng/mL Short CBC 07/20/18 Range/Units 07:59 WBC 12.9 H (4.0-11.0) th/mm3 Hgb 14.3 (13.0-17.0) gm/dL Hct 42.3 (39.0-51.0) % Plt Count 202 (150-450) th/mm3 BMP 07/20/18 07:59 Sodium 141 Potassium 4.2 D Chloride 107 Carbon Dioxide 26.1 BUN 13 Creatinine 0.86 Calcium 8.5 Cardiac Enzymes 07/19/18 Range/Units 19:29 Troponin I Less than 0.02 L (0.02-0.05) ng/mL Liver Function 07/20/18 Range/Units 07:59 Total Bilirubin 0.4 (0.2-1.0) mg/dL AST 21 (15-37) U/L ALT 28 (12-78) U/L Alkaline Phosphatase 80 (45-117) U/L Albumin 3.4 (3.4-5.0) g/dL Urine 07/19/18 Range/Units 20:00 Urine Color Yellow (Yellw/Straw) Urine Clarity Clear (Clear) Urine pH 6.0 (5.0-8.5) Ur Specific [place] 1.014 (1.002-1.035) Urine Protein Negative (Neg-Trace) mg/dL Urine Glucose (UA) Negative (Negative) mg/dL <Calista Mcknight T - 07/20/18 11:58> Physical Exam Vital signs: Vital Signs 07/19/18 17:00 07/19/18 17:25 07/19/18 18:00 Temperature 97.8 F 97.5 F L 97.6 F Pulse Rate 96 H 65 106 H Respiratory Rate 18 20 20 Blood Pressure 138/83 134/105 H 111/62 Pulse Oximetry 97 96 07/19/18 20:00 07/20/18 00:00 07/20/18 04:00 Temperature 97.9 F 97.9 F 97.7 F Pulse Rate 97 H 71 71 Respiratory Rate 18 18 17 Blood Pressure 107/58 L 104/65 101/76 Pulse Oximetry 97 97 95 07/20/18 07:55 07/20/18 10:02 07/20/18 12:00 Temperature 97.1 F L Pulse Rate 73 71 Respiratory Rate 18 Blood Pressure 100/66 Pulse Oximetry 95 96 Intake & Output 07/19/18 07/20/18 07/20/18 18:59 06:59 18:59 Intake Total 1100 / 1100 270 / 270 Output Total 800 / 800 1600 / 1600 Balance -800 / -800 -500 / -500 270 / 270 Weight 116.4 kg 116.4 kg Intake: IV 1100 / 1100 270 / 270 NS Inj 1,000 ML @ 80 mls/hr IV. 1000 / 1000 250 / 250 CONT .[id number] [facility] Rx#:[id number] Cardizem Inj 125 MG In NS Inj 100 / 100 20 / 20 100 ML @ 5 MG/HR 5 mls/hr IV. CONT TITRATE PRN Rx#:[id number] Output: Urine 800 / 800 1600 / 1600 Other: # Voids 1 Weight On Admission 113 kg <Naveed Rahman L - 07/20/18 15:58> Vital Signs 07/19/18 12:41 07/19/18 17:00 07/19/18 17:25 Temperature 97.9 F 97.8 F 97.5 F L Pulse Rate 100 H 96 H 65 Respiratory Rate 18 18 20 Blood Pressure 109/61 138/83 134/105 H Pulse Oximetry 98 97 07/19/18 18:00 07/19/18 20:00 07/20/18 00:00 Temperature 97.6 F 97.9 F 97.9 F Pulse Rate 106 H 97 H 71 Respiratory Rate 20 18 18 Blood Pressure 111/62 107/58 L 104/65 Pulse Oximetry 96 97 97 07/20/18 04:00 07/20/18 07:55 07/20/18 10:02 Temperature 97.7 F Pulse Rate 71 73 Respiratory Rate 17 Blood Pressure 101/76 Pulse Oximetry 95 95 Intake & Output 07/19/18 07/20/18 07/20/18 18:59 06:59 18:59 Intake Total 1100 / 1100 270 / 270 Output Total 800 / 800 1600 / 1600 Balance -800 / -800 -500 / -500 270 / 270 Weight 116.4 kg 116.4 kg Intake: IV 1100 / 1100 270 / 270 NS Inj 1,000 ML @ 80 mls/hr IV. 1000 / 1000 250 / 250 CONT .[id number] [facility] Rx#:[id number] Cardizem Inj 125 MG In NS Inj 100 / 100 20 / 20 100 ML @ 5 MG/HR 5 mls/hr IV. CONT TITRATE PRN Rx#:[id number] Output: Urine 800 / 800 1600 / 1600 Other: # Voids 1 Weight On Admission 113 kg <Calista Mcknight T - 07/20/18 11:58> Narrative: General: Pleasant, male in no acute distress HEENT: PERRLA, EOMI, throat clear, no lymphadenopathy Cardio: Regular rate and rhythm Pulmonary: There to auscultation bilaterally, no wheezes or crackles Abdomen: Soft, nontender, nondistended, positive bowel sounds, no rebound, no guarding Extremities: No cyanosis, trace edema Neuro: Awake and alert x3 <Calista Mcknight T - 07/20/18 13:43> Assessment and Plan - Assessment (1) Arrhythmia Code(s): I49.9 - Cardiac arrhythmia, unspecified Status: Acute (2) CHF (congestive heart failure) Code(s): I50.9 - Heart failure, unspecified Status: Acute (3) REMY (acute kidney injury) Code(s): N17.9 - Acute kidney failure, unspecified Status: Acute (4) Leukocytosis Code(s): D72.829 - Elevated white blood cell count, unspecified Status: Acute (5) Nutrition, metabolism, and development symptoms Code(s): R63.8 - Other symptoms and signs concerning food and fluid intake Status: Acute <Naveed Rahman - 07/20/18 15:58> (1) Arrhythmia Code(s): I49.9 - Cardiac arrhythmia, unspecified Status: Acute Plan: 53-year-old male with a history of CHF (last echo per EMR 06/30/16: EF 10 to 15% ) and a flutter s/p cardiac ablation and a.fib w/ RVR s/p cardiac conversion 07/05, and AICD in situ, presents to the ED for palpitations. Forestry Aide, Dr. Brandt, consulted, appreciated recommendations Patient was started on Eliquis 5 mg twice daily Per cardiology, patient will be on anticoagulation for 3 weeks and then schedule ablation, if patient has uncontrollable heart rate during hospitalization,then MACHELLE will be ordered Echo 2D w/ doppler pending Discontinue diltiazem drip, transition patient to p.o. Cardizem 60 mg 4 times daily Continue amiodarone 200mg Po daily and metoprolol 50mg PO BID TSH/T4 wnl (2) CHF (congestive heart failure) Code(s): I50.9 - Heart failure, unspecified Status: Acute Plan: Last Echo per EMR 06/30/16: EF 10-15% Continue Furosemide 40mg PO BID (3) REMY (acute kidney injury) Code(s): N17.9 - Acute kidney failure, unspecified Status: Acute Plan: BUN 20 and Cr 1.26 on admission Baseline: cr 0.83 on 03/19/17 Resolved (4) Leukocytosis Code(s): D72.829 - Elevated white blood cell count, unspecified Status: Acute Plan: Elevated WBC 14.8 on admission, no source of infection Patient is afebrile. WBC most likely elevated due to cardiac stress UA negative LA 1.1 WBC trending down (5) Nutrition, metabolism, and development symptoms Code(s): R63.8 - Other symptoms and signs concerning food and fluid intake Status: Acute Plan: Fluids: PO hydration Diet: Cardiac diet vitals q4, monitor I & Os DVT ppx: Eliquis <Juan LuisMamtagarry Gonzalez T - 07/20/18 13:35> - Attending Attestation The exam, history, and the medical decision-making described in the above note were completed with the assistance of the resident physician. I reviewed and agree with the findings presented. I attest that I had a [id number] encounter with the patient on the same day, and personally performed and documented my assessment and findings in the medical record. I evaluated patient with the resident team this morning. Patient transitioning to oral medications for rate control. He is also started on anticoagulation to prevent CVA. Plan for cardiac ablation as an outpatient. <Naveed Rahman - 07/20/18 15:58>
[2018-07-20 13:20] VITALS: RESP 18
--- NOTE | 2018-07-20 13:39 | ECHRPT ---
Indication: A FIB FLUTTER CONCLUSIONS Moderately dilated left ventricle. Wall thickness is normal. The left ventricular systolic function is severely reduced with an estimated ejection fraction in th e range of 20-25%. The basal posterior wall is mildly hypokinetic. All other marcus are severely hypokinetic. The left atrial size is mildly dilated. Mild mitral valve regurgitation. There is trace tricuspid valve regurgitation. The estimated pulmonary arterial pressure is 23 mmHg. BP: / HR: Rhythm: Technical Quality: FINDINGS LEFT VENTRICLE Moderately dilated left ventricle. Wall thickness is normal. The left ventricular systolic function is severely reduced with an estimated ejection fraction in th e range of 20-25%. The basal posterior wall is mildly hypokinetic. All other marcus are severely hypokinetic. RIGHT VENTRICLE Normal right ventricular size and systolic function. LEFT ATRIUM The left atrial size is mildly dilated. RIGHT ATRIUM There is a pacemaker wire present in the right atrial cavity. ATRIAL SEPTUM Normal atrial septal thickness without atrial level shunting by limited color doppler interrogation. AORTA The aortic root and proximal ascending aorta are normal in size on limited imaging. MITRAL VALVE Mild mitral valve regurgitation. AORTIC VALVE Trileaflet aortic valve. No aortic valve stenosis or regurgitation. TRICUSPID VALVE There is trace tricuspid valve regurgitation. The estimated pulmonary arterial pressure is 23 mmHg. PULMONARY VALVE The pulmonary valve is not well visualized. VESSELS The inferior vena cava is normal in size. PERICARDIUM No pericardial effusion. Michael Gamez MD (Electronically Signed) Final Date:20 July 2018 13:38
[2018-07-21 06:31] VITALS: O2SAT 97
[2018-07-21 08:58] LABS: Hematocrit 45.6 % (39.0-51.0); Hemoglobin 15.3 gm/dL (13.0-17.0); Mean Corpuscular HGB Conc 33.6 % (32.0-36.0); Mean Corpuscular Hemoglobin 33.6 pg (27.0-34.0); Mean Corpuscular Volume 99.8 fL (80.0-100.0); Mean Platelet Volume 8.7 fL (7.0-11.0); Platelet Count 205 th/mm3 (150-450); Red Blood Count 4.57 mil/mm3 (4.50-5.90); Red Cell Distribution Width 13.2 % (11.6-17.2); White Blood Count 12.9 th/mm3 (4.0-11.0)
[2018-07-21 09:18] LABS: Calcium 8.6 mg/dL (8.5-10.1); Carbon Dioxide 24.2 meq/L (21.0-32.0); Potassium 3.7 meq/L (3.5-5.1)
[2018-07-21] MEDS: Metoprolol Tartrate 50 MG Tablet PO SCH (09:32)
[2018-07-21] MEDS: Amiodarone 200 MG Tablet PO SCH (09:32)
[2018-07-21] MEDS: dilTIAZem 60 MG Tablet PO SCH ×3 (09:33→17:55)
[2018-07-21] MEDS: Furosemide 40 MG Tablet PO SCH ×2 (09:40→17:56)
--- NOTE | 2018-07-21 10:13 | P.PNFP ---
Subjective Interval history: No acute events overnight. Patient lying in bed. at bedside. Patient states that he has been moderately short of breath when walking around. Shortness of breath relieved with rest. States that his heart feels like it skips a beat. Per EMR, patient's heart rate has been around 75. Will discuss with cardio about overrall plan for patient. Denies active CP, N/V, fevers, and abdominal pain. Results - Labs Result diagrams: 07/21/18 07:25 07/21/18 07:25 Abnormal lab results 07/20/18 07/21/18 07/21/18 Range/Units 07:59 07:25 07:25 WBC 12.9 H 12.9 H (4.0-11.0) th/mm3 RBC 4.26 L (4.50-5.90) mil/mm3 [place] # (Auto) 1.0 H (0.0-0.9) th/mm3 Estimated GFR 86 L (>89) mL/min Random Glucose 122 H (74-106) mg/dL Short CBC 07/20/18 07/21/18 Range/Units 07:59 07:25 WBC 12.9 H 12.9 H (4.0-11.0) th/mm3 Hgb 14.3 15.3 (13.0-17.0) gm/dL Hct 42.3 45.6 (39.0-51.0) % Plt Count 202 205 (150-450) th/mm3 BMP 07/20/18 07/21/18 07:59 07:25 Sodium 141 139 Potassium 4.2 D 3.7 Chloride 107 104 Carbon Dioxide 26.1 24.2 BUN 13 12 Creatinine 0.86 0.92 Calcium 8.5 8.6 Liver Function 07/20/18 Range/Units 07:59 Total Bilirubin 0.4 (0.2-1.0) mg/dL AST 21 (15-37) U/L ALT 28 (12-78) U/L Alkaline Phosphatase 80 (45-117) U/L Albumin 3.4 (3.4-5.0) g/dL Physical Exam Vital signs: Vital Signs 07/20/18 12:00 07/20/18 16:00 07/20/18 20:00 Temperature 97.1 F L 97.7 F 97.6 F Pulse Rate 71 73 74 Respiratory Rate 18 18 18 Blood Pressure 100/66 106/72 109/67 Pulse Oximetry 96 98 97 07/21/18 00:00 07/21/18 04:00 07/21/18 08:00 Temperature 98.4 F 98.4 F 97.8 F Pulse Rate 74 74 75 Respiratory Rate 18 Blood Pressure 118/78 121/74 117/76 Pulse Oximetry 96 97 97 Intake & Output 07/20/18 07/21/18 07/21/18 18:59 06:59 18:59 Intake Total 830 / 830 920 / 920 Output Total 1999 4550 / 4550 Balance -1170 / -1170 -3630 / -3630 Intake: IV 270 / 270 NS Inj 1,000 ML @ 80 mls/hr IV. 250 / 250 CONT .[id number] [facility] Rx#:[id number] Cardizem Inj 125 MG In NS Inj 20 / 20 100 ML @ 5 MG/HR 5 mls/hr IV. CONT TITRATE PRN Rx#:[id number] Oral 560 / 560 920 / 920 Output: Urine 1999 4550 / 4550 Other: # Voids 4 # Bowel Movements 0 0 Narrative: General: Pleasant, male in no acute distress HEENT: PERRLA, EOMI, throat clear, no lymphadenopathy Cardio: Regular rate and rhythm Pulmonary: There to auscultation bilaterally, no wheezes or crackles Abdomen: Soft, nontender, nondistended, positive bowel sounds, no rebound, no guarding Extremities: No cyanosis, trace edema Neuro: Awake and alert x3 Assessment and Plan - Assessment (1) Arrhythmia Code(s): I49.9 - Cardiac arrhythmia, unspecified Status: Acute Plan: 53-year-old male with a history of CHF (last echo per EMR 06/30/16: EF 10 to 15% ) and a flutter s/p cardiac ablation and a.fib w/ RVR s/p cardiac conversion 07/05, and AICD in situ, presents to the ED for palpitations. Steel Estimator, Dr. Brandt, consulted, appreciated recommendations Continue Eliquis 5 mg twice daily Per cardiology's note, patient will be on anticoagulation for 3 weeks and then schedule ablation, if patient has uncontrollable heart rate during hospitalization,then MACHELLE will be ordered Echo 2D w/ doppler demonstrates EF 20-25%. continue PO Cardizem 60 mg 4 times daily, possibly could be discharge home on 180mg PO ER cardizem Continue amiodarone 200mg Po daily and metoprolol 50mg PO BID TSH/T4 wnl Will discuss with cardio about patient's overall plan Will work with CM about providing patient with assistance to pay for Eliquis (2) CHF (congestive heart failure) Code(s): I50.9 - Heart failure, unspecified Status: Acute Plan: Last Echo per EMR 06/30/16: EF 10-15% Continue Furosemide 40mg PO BID (3) Leukocytosis Code(s): D72.829 - Elevated white blood cell count, unspecified Status: Acute Plan: Elevated WBC 14.8 on admission, no source of infection Patient is afebrile. WBC most likely elevated due to cardiac stress UA negative LA 1.1 WBC trending down (4) Nutrition, metabolism, and development symptoms Code(s): R63.8 - Other symptoms and signs concerning food and fluid intake Status: Acute Plan: Fluids: PO hydration Diet: Cardiac diet vitals q4, monitor I & Os DVT ppx: Eliquis
[2018-07-21] MEDS ORDERED: Bisacodyl 10 MG Supp RECTAL PRN (10:15)
--- NOTE | 2018-07-21 15:38 | P.DS ---
Date of admission: 07/19/18 11:49 Primary care physician: UNKNOWN Brief History from admission: 53-year-old male with a history of CHF (last echo per EMR 06/30/16: EF 10 to 15% ) and a flutter s/p cardiac ablation and a.fib w/ RVR s/p cardiac conversion 07/05, and AICD in situ, presents to the ED for palpitations. Patient states that his heart was racing for the last 3 days. Pulse has been 143 but has gone up to 150s. Patient tried to walk to bring his heart rate down. Patient decided to come to the ED after not being able to sleep due to palpitations. He states that he is not currently on blood thinners due to cost. States that his amiodarone pill was changed to generic brand 2 months ago and thinks that this might be the cause of it. Endorses slight shortness of breath on exertion, lightheadedness, and diaphoresis. Denies fevers, chest pain, nausea vomiting, abdominal pain, urinary symptoms, weakness. PMH: Childhood heart murmur, Diagnosed with afib in April 2 years ago. Has had a fib and a flutter. Meds: Aspirin, tumeric, Fish oils, garlic, Amio 200, Metoprolol, and furosemide PRN, Proc/ Surgeries: Pacer/ defib, Right knee, cardioversion X2 FHx: Mother 76 with a-fib, Father passed at 76 from "weak heart and infection from foot", 2 kids: 33, 21 both healthy. Allergies: Esmolol Social: [employer] disability, lives with . works at [employer]. Patient retired from lawn work. Smoked since 15yr old, 4 packs a year for the last 10 years. Switched to pipe (equivalent to cigarettes. 7 months ago. Used to be a heavy drinker, used to drink a 12 pack every night 8 years. Now drinks 8 ounces a day. Used drugs when he was young [age], never IV drugs. Mostly speed. DS: Diagnosis - Discharge Diagnosis (1) Arrhythmia Status: Acute (2) CHF (congestive heart failure) Status: Acute (3) Leukocytosis Status: Acute (4) Nutrition, metabolism, and development symptoms Status: Acute DS: Medications - Discharge Medications Prescriptions: apixaban [Eliquis] 5 mg PO BID #60 tab diltiazem HCl [Matzim LA] 180 mg PO DAILY #60 tab DS: Summary - Time Spent with Patient Total time spent providing and/or coordinating discharge services: - Quality: VTE Deep Vein Thrombosis/Pulmonary Embolism Present on Admission: No Exam Vital signs: Vital Signs 07/20/18 16:00 07/20/18 20:00 07/21/18 00:00 Temperature 97.7 F 97.6 F 98.4 F Pulse Rate 73 74 74 Respiratory Rate 18 18 18 Blood Pressure 106/72 109/67 118/78 Pulse Oximetry 98 97 96 07/21/18 04:00 07/21/18 08:00 07/21/18 11:10 Temperature 98.4 F 97.8 F Pulse Rate 74 75 Respiratory Rate 18 18 Blood Pressure 121/74 117/76 Pulse Oximetry 97 97 97 07/21/18 12:00 Temperature 97.7 F Pulse Rate 76 Respiratory Rate 18 Blood Pressure 103/63 Pulse Oximetry 97 Intake & Output 07/20/18 07/21/18 07/21/18 18:59 06:59 18:59 Intake Total 830 / 830 920 / 920 Output Total 1999 4550 / 4550 Balance -1170 / -1170 -3630 / -3630 Intake: IV 270 / 270 NS Inj 1,000 ML @ 80 mls/hr IV. 250 / 250 CONT .[id number] [facility] Rx#:[id number] Cardizem Inj 125 MG In NS Inj 20 / 20 100 ML @ 5 MG/HR 5 mls/hr IV. CONT TITRATE PRN Rx#:[id number] Oral 560 / 560 920 / 920 Output: Urine 1999 4550 / 4550 Other: # Voids 4 # Bowel Movements 0 0 Results Labs on day of discharge: Labs from last 24 hours 07/21/18 07/21/18 07:25 07:25 WBC 12.9 H RBC 4.57 Hgb 15.3 Hct 45.6 MCV 99.8 MCH 33.6 MCHC 33.6 RDW 13.2 Plt Count 205 MPV 8.7 Sodium 139 Potassium 3.7 Chloride 104 Carbon Dioxide 24.2 Anion Gap 11 BUN 12 Creatinine 0.92 Estimated GFR 86 L Random Glucose 122 H Calcium 8.6 - Impressions ITS Impressions Chest X-Ray 07/19/18 10:19 CONCLUSION: Pacemaker in good position. Discharge Plan - Discharge Disposition Patient Disposition: Discharge Home - Discharge Condition Condition: Stable - Discharge Order Discharge Orders: Discharge Order (Routine); Ordered 07/21/18 Ordered By: Calista Mcknight - Physicians Team Primary Care Provider: UNKNOWN, Attending Provider: Naveed Rahman Other Providers: Parul Means MD
[2018-07-21 18:35] VITALS: BP 101/60; PULSE 75; TEMP 98.1
[2018-07-21] MEDS ORDERED: Senna/Docusate Sodium 8.6/50 MG Tablet PO SCH (21:00)
== END 2018-07-21 18:43 | disposition home or self-care (01) ==
LOC: NEPE 09:52 → NEDA 11:49 → N04 17:00
PROVIDERS: ADMIT Family Medicine; ATTEND Family Medicine

== ENCOUNTER 2018-08-24 15:39 | Observation (INO) ==
--- NOTE | 2018-08-24 16:39 | ED ---
HPI General Chief Complaint: Arrhythmia / Palpitations Stated Complaint: abnl EKG/doc sent Time Seen by Provider: 08/24/18 16:17 History of Present Illness HPI narrative: Patient is a 53-year-old male with history of palpitations, CHF, atrial fibrillation on Eliquis his AICD by [employer], alcoholic cardiomyopathy. Patient was sent to emergency room for admission by primary physician Dr. Means. Oblation planned. Vitals stable, patient feels comfortable in his stretcher in the emergency room. Heart rate is 95 bpm. Related Data Home Medications Medication Instructions Recorded Confirmed amiodarone 200 mg PO DAILY 07/19/18 08/24/18 ascorbic acid (vitamin C) [Vitamin 1,000 mg PO DAILY 07/19/18 08/24/18 C] cyanocobalamin (vitamin B-12) 2,000 mcg PO DAILY 07/19/18 08/24/18 [Vitamin B-12] furosemide [Lasix] 40 mg PO PRN PRN 07/19/18 08/24/18 garlic 6,000 mg PO DAILY 07/19/18 08/24/18 magnesium 250 mg PO DAILY 07/19/18 08/24/18 metoprolol tartrate 50 mg PO BID 07/19/18 08/24/18 Previous Rx's Medication Instructions Recorded apixaban [Eliquis] 5 mg PO BID #60 tab 07/21/18 diltiazem HCl [Matzim LA] 180 mg PO DAILY #60 tab 07/21/18 Allergies Allergy/AdvReac Type Severity Reaction Status Date / Time esmolol AdvReac Severe Hypotension Verified 08/24/18 15:57 Review of Systems ROS: all other systems reviewed are negative Cardiovascular Reports rapid heart rate and Reports irregular heart rhythm [facility] Medical History Medical History Afib (Acute) Atrial tachycardia (Acute) Irregular heart rate (Acute) Pacemaker (Acute) Surgical History Surgical History AICD (automatic cardioverter/defibrillator) present (Acute) S/P ablation of atrial fibrillation (Acute) Family History Family History Mother Atrial fibrillation Social History Social History Substance History: No History of Abuse Second Hand Smoke Exposure: Yes Smoking Status: Current every day smoker Tobacco Type: Pipe How Often Do You Have a Drink Containing Alcohol: Monthly or less Recent Travel in [facility] within the Last 8 Weeks: No Recent Out of Country Travel within the Last 8 Weeks: No Exam Narrative Exam Narrative: GENERAL: 53-year-old male in no apparent distress SKIN: Focused skin assessment warm/dry. HEAD: Atraumatic. Normocephalic. EYES: Pupils equal and round. No scleral icterus. No injection or drainage. ENT: No nasal bleeding or discharge. Mucous membranes pink and moist. NECK: Trachea midline. No JVD. CARDIOVASCULAR: Irregular heart rate, 95 bpm. No murmur appreciated. RESPIRATORY: No accessory muscle use. Clear to auscultation. Breath sounds equal bilaterally. GASTROINTESTINAL: Abdomen soft, non-tender, nondistended. Hepatic and splenic margins not palpable. MUSCULOSKELETAL: No obvious deformities. No clubbing. No cyanosis. No edema. NEUROLOGICAL: Awake and alert. No obvious cranial nerve deficits. Motor grossly within normal limits. Normal speech. PSYCHIATRIC: Appropriate mood and affect; insight and judgment normal. Course Initial Documented Vital Signs Temperature 98.3 F 08/24/18 15:48 Pulse Rate 87 08/24/18 15:48 Respiratory Rate 20 08/24/18 15:48 Blood Pressure 133/84 08/24/18 15:48 Pulse Oximetry 98 08/24/18 15:48 Last Documented Vital Signs Temperature 98.3 F 08/24/18 15:48 Pulse Rate 71 08/24/18 16:37 Respiratory Rate 16 08/24/18 16:37 Blood Pressure 134/68 08/24/18 16:37 Pulse Oximetry 96 08/24/18 16:37 Medical Decision Making [facility] Narrative Medical decision making narrative: Labs ordered, reevaluation is pending. 1740: Labs noted brain natriuretic peptide is elevated over than 800, heart rate is 94, normal sinus rhythm with prolonged DC, as per Dr. Espinoza note patient needs to be admitted for ablation, the case was discussed with his partner, admission recommended. Patient was accepted by Dr. Mendoza for admission. Medical Screen Exam Complete: Yes Emergency Medical Condition: Yes Differential Diagnosis Differential Diagnosis: Atrial fibrillation versus rapid A. fib versus [place]. Lab Data Result diagrams: 08/24/18 16:20 08/24/18 16:20 Lab Results 08/24/18 08/24/18 08/24/18 Range/Units 16:20 16:20 16:20 WBC (4.0-11.0) th/mm3 RBC (4.50-5.90) mil/mm3 Hgb (13.0-17.0) gm/dL Hct (39.0-51.0) % MCV (80.0-100.0) fL MCH (27.0-34.0) pg MCHC (32.0-36.0) % RDW (11.6-17.2) % Plt Count (150-450) th/mm3 MPV (7.0-11.0) fL Neut % (Auto) (16.0-70.0) % Lymph % (Auto) (9.0-44.0) % [place] % (Auto) (0.0-8.0) % Eos % (Auto) (0.0-4.0) % Baso % (Auto) (0.0-2.0) % Neut # (Auto) (1.8-7.7) th/mm3 Lymph # (Auto) (1.0-4.8) th/mm3 [place] # (Auto) (0.0-0.9) th/mm3 Eos # (Auto) (0.0-0.4) th/mm3 Baso # (Auto) (0.0-0.2) th/mm3 WBC Differential Differential Comment PT 10.8 (9.8-11.6) sec INR 1.1 Ratio Sodium (136-145) meq/L Potassium (3.5-5.1) meq/L Chloride (98-107) meq/L Carbon Dioxide (21.0-32.0) meq/L Anion Gap (5-15) meq/L BUN (7-18) mg/dL Creatinine (0.60-1.30) mg/dL Estimated GFR (>89) mL/min Random Glucose (74-106) mg/dL Calcium (8.5-10.1) mg/dL Magnesium (1.5-2.5) mg/dL Total Bilirubin (0.2-1.0) mg/dL AST (15-37) U/L ALT (12-78) U/L Alkaline Phosphatase (45-117) U/L Troponin I (0.02-0.05) ng/mL B-Natriuretic Peptide 817 H (0-100) pg/mL Total Protein (6.4-8.2) g/dL Albumin (3.4-5.0) g/dL TSH Cancelled Urine Color (Yellw/Straw) Urine Clarity (Clear) Urine pH (5.0-8.5) Ur Specific [place] (1.002-1.035) Urine Protein (Neg-Trace) mg/dL Urine Glucose (UA) (Negative) mg/dL Urine Ketones (Negative) mg/dL Urine Occult Blood (Negative) Urine Nitrate (Negative) Urine Bilirubin (Negative) Urine Urobilinogen (Less than 2) mg/dL Ur Leukocyte Esterase (Negative) Urine RBC (0-3) /hpf Urine WBC (0-5) /hpf Ur Squamous Epith Cells (0-5) /hpf Urine Mucus (Occasional) /lpf Micro UA Comment Ur Microscopic Review Urine Culture Comments 08/24/18 08/24/18 08/24/18 Range/Units 16:20 16:20 17:24 WBC 12.7 H (4.0-11.0) th/mm3 RBC 4.53 (4.50-5.90) mil/mm3 Hgb 15.3 (13.0-17.0) gm/dL Hct 44.9 (39.0-51.0) % MCV 99.1 (80.0-100.0) fL MCH 33.8 (27.0-34.0) pg MCHC 34.1 (32.0-36.0) % RDW 13.2 (11.6-17.2) % Plt Count 253 (150-450) th/mm3 MPV 8.2 (7.0-11.0) fL Neut % (Auto) 68.2 (16.0-70.0) % Lymph % (Auto) 22.0 (9.0-44.0) % [place] % (Auto) 8.1 H (0.0-8.0) % Eos % (Auto) 1.3 (0.0-4.0) % Baso % (Auto) 0.4 (0.0-2.0) % Neut # (Auto) 8.7 H (1.8-7.7) th/mm3 Lymph # (Auto) 2.8 (1.0-4.8) th/mm3 [place] # (Auto) 1.0 H (0.0-0.9) th/mm3 Eos # (Auto) 0.2 (0.0-0.4) th/mm3 Baso # (Auto) 0.0 (0.0-0.2) th/mm3 WBC Differential . Differential Comment Auto diff final PT (9.8-11.6) sec INR Ratio Sodium 138 (136-145) meq/L Potassium 4.4 (3.5-5.1) meq/L Chloride 104 (98-107) meq/L Carbon Dioxide 26.3 (21.0-32.0) meq/L Anion Gap 8 (5-15) meq/L BUN 15 (7-18) mg/dL Creatinine 0.95 (0.60-1.30) mg/dL Estimated GFR 83 L (>89) mL/min Random Glucose 100 (74-106) mg/dL Calcium 8.4 L (8.5-10.1) mg/dL Magnesium 2.2 (1.5-2.5) mg/dL Total Bilirubin 0.3 (0.2-1.0) mg/dL AST 17 (15-37) U/L ALT 28 (12-78) U/L Alkaline Phosphatase 103 (45-117) U/L Troponin I Less than 0.02 L (0.02-0.05) ng/mL B-Natriuretic Peptide (0-100) pg/mL Total Protein 7.9 (6.4-8.2) g/dL Albumin 3.6 (3.4-5.0) g/dL TSH 0.929 Urine Color Paula (Yellw/Straw) Urine Clarity Cloudy H (Clear) Urine pH 7.0 (5.0-8.5) Ur Specific [place] 1.017 (1.002-1.035) Urine Protein Negative (Neg-Trace) mg/dL Urine Glucose (UA) Negative (Negative) mg/dL Urine Ketones Negative (Negative) mg/dL Urine Occult Blood Negative (Negative) Urine Nitrate Negative (Negative) Urine Bilirubin Negative (Negative) Urine Urobilinogen Less than 2 (Less than 2) mg/dL Ur Leukocyte Esterase Negative (Negative) Urine RBC Less than 1 (0-3) /hpf Urine WBC 1 (0-5) /hpf Ur Squamous Epith Cells <1 (0-5) /hpf Urine Mucus Few H (Occasional) /lpf Micro UA Comment Culture not ind Ur Microscopic Review Not Reportable Urine Culture Comments Culture not ind Imaging Data Radiologist's impression: Chest X-Ray 08/24/18 16:22 CONCLUSION: 1. No acute abnormality or significant interval change. Discharge Plan Discharge Disposition Patient Disposition: ED Admit(ED Internal Use Only) Discharge Condition Condition: Fair Discharge Order Discharge Orders: ED Use Only Admit Order (Routine); Ordered 08/24/18 Ordered By: Vernon Bundy Physicians Team ED Provider: Vernon Bundy Primary Care Provider: Parul Means Rxs /Orders / Referrals /Forms Prescriptions: No Action furosemide [Lasix] 40 mg Tablet 40 mg PO PRN PRN (Reason: leg swelling) RF: 0 amiodarone 200 mg Tablet 200 mg PO DAILY RF: 0 metoprolol tartrate 50 mg Tablet 50 mg PO BID RF: 0 cyanocobalamin (vitamin B-12) [Vitamin B-12] 2,000 mcg Tablet Extended Release 2,000 mcg PO DAILY RF: 0 garlic 1,000 mg Capsule 6,000 mg PO DAILY RF: 0 ascorbic acid (vitamin C) [Vitamin C] 1,000 mg Tablet 1,000 mg PO DAILY RF: 0 magnesium 250 mg Tablet 250 mg PO DAILY RF: 0 apixaban [Eliquis] 5 mg Tablet 5 mg PO BID Qty: 60 RF: 0 diltiazem HCl [Matzim LA] 180 mg Tablet Extended Release 24 Hr 180 mg PO DAILY Qty: 60 RF: 0 Discharge Interventions Interventions: Vital Signs Last Done: 08/24/18 16:37 Status ED Status: Admitted Patient
--- NOTE | 2018-08-24 16:50 | XR ---
EXAM DATE: 08/24/2018 4:48 PM EST AGE/SEX: 53 years / Male INDICATIONS: Palpitations. CLINICAL DATA: This is the patient's initial encounter. Patient reports that signs and symptoms have been present for 3 weeks and indicates a pain score of 0/10. MEDICAL/SURGICAL HISTORY: . A-fib. Pacemaker. COMPARISON: C, CHEST 1V SINGLE AP, 07/19/2018. . FINDINGS: No significant new focal pleural or parenchymal opacities. Single lead AICD device in stable position . Cardiac silhouette is mildly enlarged. Remainder of the exam is unchanged. CONCLUSION: 1. No acute abnormality or significant interval change. Electronically signed by: Fady Harper MD 08/24/2018 4:49 PM EST
[2018-08-24 17:01] LABS: Baso % (Auto) 0.4 % (0.0-2.0); Eos # (Auto) 0.2 th/mm3 (0.0-0.4); Eos % (Auto) 1.3 % (0.0-4.0); Hematocrit 44.9 % (39.0-51.0); Hemoglobin 15.3 gm/dL (13.0-17.0); Lymph # (Auto) 2.8 th/mm3 (1.0-4.8); Mean Corpuscular HGB Conc 34.1 % (32.0-36.0); Mean Corpuscular Hemoglobin 33.8 pg (27.0-34.0); Mean Corpuscular Volume 99.1 fL (80.0-100.0); Mean Platelet Volume 8.2 fL (7.0-11.0); Mono % (Auto) 8.1 % (0.0-8.0); Neut # (Auto) 8.7 th/mm3 (1.8-7.7); Neut % (Auto) 68.2 % (16.0-70.0); Platelet Count 253 th/mm3 (150-450); Red Blood Count 4.53 mil/mm3 (4.50-5.90); Red Cell Distribution Width 13.2 % (11.6-17.2); White Blood Count 12.7 th/mm3 (4.0-11.0)
[2018-08-24 17:05] LABS: INR 1.1 Ratio; Prothrombin Time 10.8 sec (9.8-11.6)
[2018-08-24 17:16] LABS: Albumin 3.6 g/dL (3.4-5.0); Anion Gap 8 meq/L (5-15); Aspartate Aminotransferase 17 U/L (15-37); Blood Urea Nitrogen 15 mg/dL (7-18); Calcium 8.4 mg/dL (8.5-10.1); Carbon Dioxide 26.3 meq/L (21.0-32.0); Chloride 104 meq/L (98-107); Glomerular Filtration Rate 83 mL/min (>89); Glucose,Random 100 mg/dL (74-106); Magnesium 2.2 mg/dL (1.5-2.5); Potassium 4.4 meq/L (3.5-5.1); Sodium 138 meq/L (136-145)
[2018-08-24 17:26] LABS: Alanine Aminotransferase 28 U/L (12-78); Alkaline Phosphatase 103 U/L (45-117); Thyroid Stimulating Hormone 0.929 uIU/mL (0.358-3.740); Total Protein 7.9 g/dL (6.4-8.2)
[2018-08-24 17:44] LABS: Bilirubin,Urine Negative (Negative); Clarity,Urine Cloudy (Clear); Color,Urine Amber (Yellw/Straw); Glucose,Urine (UA) Negative (Negative); Leukocyte Esterase,Urine Negative (Negative); Mucus,Urine Few /lpf (Occasional); Nitrite,Urine Negative (Negative); Specific Gravity,Urine 1.017 (1.002-1.035); Squamous Epithelial Cell,Urine <1 /hpf (0-5)
[2018-08-24] MEDS ORDERED: Acetaminophen 325 MG Tablet PO PRN (18:28)
[2018-08-24] MEDS ORDERED: LORazepam 1 MG Tablet PO PRN (18:32)
[2018-08-24] MEDS ORDERED: Haloperidol Inj 5 MG/ML Ampul IV.PUSH PRN (18:32)
--- NOTE | 2018-08-24 18:41 | P.HP ---
History of Present Illness Primary Care Physician: Parul Means MD Chief Complaint: Rapid ventricular rate History of Present Illness: 53-year-old male with a past medical history of A. fib, CHF, alcoholic cardiomyopathy was sent to the ED by Dr. Means's office for admission to the hospital secondary to rapid ventricular response. Patient has gone for his routine follow-up visit today, and was found to have heart rate sustained in 140s however denies any symptoms. When patient arrived in the ED, he was however rate controlled and during my exam his heart rate was sustained in 70s. He has no other issues. Inpatient Certification: I certify that the inpatient services were ordered in accordance with Medicare regulations governing the order. This includes certification that hospital inpatient services are reasonable and necessary and in the case of services not specified as inpatient-only under 42 CFR 419.22(n), that they are appropriately provided as inpatient services in accordance to with the 2-midnight benchmark under 43 CFR 412.3(e) Review of Systems All other systems reviewed negative except as stated in H[facility] - History History Provided By: Patient - Medical History Medical History: Medical History (Last Reviewed 08/24/18 @ 15:57 by Porsche Olguin, DESTINI) Afib Atrial tachycardia Irregular heart rate Pacemaker - Surgical History Surgical History: Surgical History (Last Updated 08/24/18 @ 17:14 by Nissa Anderson RN) AICD (automatic cardioverter/defibrillator) present S/P ablation of atrial fibrillation - Family History Family History: Family History (Last Updated 07/19/18 @ 17:20 by Calista Mcknight MD, R2) Mother Atrial fibrillation - Tobacco History Second Hand Smoke Exposure: Yes Tobacco Use In Past 30 Days: Yes Smoking Status: Current every day smoker Tobacco Type: Pipe - Alcohol History How Often Do You Have a Drink Containing Alcohol: Monthly or less - Substance Use History Substance History: No History of Abuse - Travel History Recent Travel in the [place] Within the Last 8 Weeks: No Recent Travel Out of the Country Within the Last 8 Weeks: No - Immunization History Tetanus Immunization: <5 Years Medications and Allergies Active Medications: Active Medications Acetaminophen (Tylenol) 650 mg PO Q4H PRN PRN Reason: Temp > 100.4 Al Hydroxide/Mg Hydroxide (Milk Of Magnesia Liq) 30 ml PO Q12H PRN PRN Reason: Mild Constipation Amiodarone HCl (Cordarone) 200 mg PO DAILY [facility] Apixaban (Eliquis) 5 mg PO BID [facility] Metoprolol Tartrate (Lopressor) 50 mg PO BID [facility] Non-Formulary Medication (Diltiazem Hcl [Matzim La]) 180 mg PO DAILY [facility] Ondansetron HCl (Zofran Inj) 4 mg IV.PUSH Q6H PRN PRN Reason: NAUSEA OR VOMITING Sodium Chloride (Ns Flush) 2 ml IV.FLUSH PRN PRN PRN Reason: FLUSH AFTER USING IV ACCESS Sodium Chloride (Ns Flush) 2 ml IV.FLUSH BID JADE Sodium Chloride (Ns Flush) 2 ml IV.FLUSH PRN PRN PRN Reason: FLUSH AFTER USING IV ACCESS Allergies Allergy/AdvReac Type Severity Reaction Status Date / Time esmolol AdvReac Severe Hypotension Verified 08/24/18 15:57 Home Medications Medication Instructions Recorded Confirmed Type amiodarone 200 mg PO DAILY 07/19/18 08/24/18 History ascorbic acid (vitamin C) [Vitamin 1,000 mg PO DAILY 07/19/18 08/24/18 History C] cyanocobalamin (vitamin B-12) 2,000 mcg PO DAILY 07/19/18 08/24/18 History [Vitamin B-12] furosemide [Lasix] 40 mg PO PRN PRN 07/19/18 08/24/18 History garlic 6,000 mg PO DAILY 07/19/18 08/24/18 History magnesium 250 mg PO DAILY 07/19/18 08/24/18 History metoprolol tartrate 50 mg PO BID 07/19/18 08/24/18 History Exam Vital signs: Vital Signs 08/24/18 15:48 08/24/18 16:37 Temperature 98.3 F Pulse Rate 87 71 Respiratory Rate 20 16 Blood Pressure 133/84 134/68 Pulse Oximetry 98 96 Intake & Output 08/23/18 08/24/18 08/24/18 18:59 06:59 18:59 Weight 107.955 kg Narrative: GENERAL: NAD SKIN: Warm and dry. HEAD: Atraumatic. Normocephalic. EYES: Pupils equal and round. No scleral icterus. No injection or drainage. ENT: No nasal bleeding or discharge. Mucous membranes pink and moist. NECK: Trachea midline. No JVD. CARDIOVASCULAR: irreg Regular rate and rhythm. RESPIRATORY: No accessory muscle use. Clear to auscultation. Breath sounds equal bilaterally. GASTROINTESTINAL: Abdomen soft, non-tender, nondistended. Hepatic and splenic margins not palpable. MUSCULOSKELETAL: Extremities without clubbing, cyanosis, or edema. No obvious deformities. NEUROLOGICAL: Awake and alert. No obvious cranial nerve deficits. Motor grossly within normal limits. Five out of 5 muscle strength in the arms and legs. Normal speech. PSYCHIATRIC: Appropriate mood and affect; insight and judgment normal. Results - Labs CBC & Chem 7: 08/24/18 16:20 08/24/18 16:20 Labs: Laboratory Results - last 24 hr 08/24/18 08/24/18 08/24/18 16:20 16:20 16:20 WBC RBC Hgb Hct MCV MCH MCHC RDW Plt Count MPV Neut % (Auto) Lymph % (Auto) [place] % (Auto) Eos % (Auto) Baso % (Auto) Neut # (Auto) Lymph # (Auto) [place] # (Auto) Eos # (Auto) Baso # (Auto) WBC Differential Differential Comment PT 10.8 INR 1.1 Sodium Potassium Chloride Carbon Dioxide Anion Gap BUN Creatinine Estimated GFR Random Glucose Calcium Magnesium Total Bilirubin AST ALT Alkaline Phosphatase Troponin I B-Natriuretic Peptide 817 H Total Protein Albumin TSH Cancelled Urine Color Urine Clarity Urine pH Ur Specific [place] Urine Protein Urine Glucose (UA) Urine Ketones Urine Occult Blood Urine Nitrate Urine Bilirubin Urine Urobilinogen Ur Leukocyte Esterase Urine RBC Urine WBC Ur Squamous Epith Cells Urine Mucus Micro UA Comment Ur Microscopic Review Urine Culture Comments 08/24/18 08/24/18 08/24/18 16:20 16:20 17:24 WBC 12.7 H RBC 4.53 Hgb 15.3 Hct 44.9 MCV 99.1 MCH 33.8 MCHC 34.1 RDW 13.2 Plt Count 253 MPV 8.2 Neut % (Auto) 68.2 Lymph % (Auto) 22.0 [place] % (Auto) 8.1 H Eos % (Auto) 1.3 Baso % (Auto) 0.4 Neut # (Auto) 8.7 H Lymph # (Auto) 2.8 [place] # (Auto) 1.0 H Eos # (Auto) 0.2 Baso # (Auto) 0.0 WBC Differential . Differential Comment Auto diff final PT INR Sodium 138 Potassium 4.4 Chloride 104 Carbon Dioxide 26.3 Anion Gap 8 BUN 15 Creatinine 0.95 Estimated GFR 83 L Random Glucose 100 Calcium 8.4 L Magnesium 2.2 Total Bilirubin 0.3 AST 17 ALT 28 Alkaline Phosphatase 103 Troponin I Less than 0.02 L B-Natriuretic Peptide Total Protein 7.9 Albumin 3.6 TSH 0.929 Urine Color Paula Urine Clarity Cloudy H Urine pH 7.0 Ur Specific [place] 1.017 Urine Protein Negative Urine Glucose (UA) Negative Urine Ketones Negative Urine Occult Blood Negative Urine Nitrate Negative Urine Bilirubin Negative Urine Urobilinogen Less than 2 Ur Leukocyte Esterase Negative Urine RBC Less than 1 Urine WBC 1 Ur Squamous Epith Cells <1 Urine Mucus Few H Micro UA Comment Culture not ind Ur Microscopic Review Not Reportable Urine Culture Comments Culture not ind - Imaging Impressions Chest X-Ray 08/24/18 16:22 CONCLUSION: 1. No acute abnormality or significant interval change. Caprini VTE Risk Assessment Caprini VTE Risk Assessment: Moderate/High Risk (score >= 2) Caprini Risk Assessment Model: Point Value = 1 Point Value = 2 Point Value = 3 Point Value = 5 Age 41-60 Minor surgery BMI > 25 kg/m2 Swollen legs Varicose veins or History of unexplained or recurrent spontaneous Oral contraceptives or hormone replacement Sepsis (< 1 month) Serious lung disease, including pneumonia (< 1 month) Abnormal pulmonary function Acute myocardial infarction Congestive heart failure (< 1 month) History of inflammatory bowel disease Medical patient at bed rest Age 61-74 Arthroscopic surgery Major open surgery (> 45 min) Laparoscopic surgery (> 45 min) Malignancy Confined to bed (> 72 hours) Immobilizing plaster cast Central venous access Age >= 75 History of VTE Family history of VTE Factor V Leiden Prothrombin [id number] Lupus anticoagulant Anticardiolipin antibodies Elevated serum homocysteine Heparin-induced thrombocytopenia Other congenital or acquired thrombophilia Stroke (< 1 month) Elective arthroplasty Hip, pelvis, or leg fracture Acute spinal cord injury (< 1 month) Prophylaxis Regimen: Total Risk Factor Score Risk Level Prophylaxis Regimen 0-1 Low Early ambulation 2 Moderate Order ONE of the following: *Sequential Compression Device (SCD) *Heparin 5000 units SQ BID 3-4 Higher Order ONE of the following medications: *Heparin 5000 units SQ TID *Enoxaparin/Lovenox 40 mg SQ daily (WT < 150 kg, CrCl > 30 mL/min) *Enoxaparin/Lovenox 30 mg SQ daily (WT < 150 kg, CrCl > 10-29 mL/min) *Enoxaparin/Lovenox 30 mg SQ BID (WT < 150 kg, CrCl > 30 mL/min) AND/OR *Sequential Compression Device (SCD) 5 or more Highest Order ONE of the following medications: *Heparin 5000 units SQ TID (Preferred with Epidurals) *Enoxaparin/Lovenox 40 mg SQ daily (WT < 150 kg, CrCl > 30 mL/min) *Enoxaparin/Lovenox 30 mg SQ daily (WT < 150 kg, CrCl > 10-29 mL/min) *Enoxaparin/Lovenox 30 mg SQ BID (WT < 150 kg, CrCl > 30 mL/min) AND *Sequential Compression Device (SCD) Assessment and Plan - Plan 53-year-old man with Chronic A. fib History of AICD Alcohol cardiomyopathy History of cardiac ablation Consult Dr. Means for further evaluation for possible cardiac ablation Continue ACS ruled out per protocol Admit to CICU Resume outpatient medications DVT prophylaxis: Delfina
[2018-08-24] MEDS: Metoprolol Tartrate 50 MG Tablet PO SCH (21:55)
[2018-08-25 02:15] LABS: Creatine Kinase 76 U/L (39-308)
[2018-08-25] MEDS ORDERED: dilTIAZem CD 180 MG Capsule PO ONE (03:54)
[2018-08-25 07:35] LABS: Baso # (Auto) 0.1 th/mm3 (0.0-0.2); Baso % (Auto) 0.5 % (0.0-2.0); Eos # (Auto) 0.3 th/mm3 (0.0-0.4); Eos % (Auto) 1.9 % (0.0-4.0); Hematocrit 43.6 % (39.0-51.0); Hemoglobin 14.5 gm/dL (13.0-17.0); Lymph # (Auto) 4.4 th/mm3 (1.0-4.8); Lymph % (Auto) 34.4 % (9.0-44.0); Mean Corpuscular HGB Conc 33.2 % (32.0-36.0); Mean Corpuscular Hemoglobin 33.3 pg (27.0-34.0); Mean Corpuscular Volume 100.2 fL (80.0-100.0); Mean Platelet Volume 8.2 fL (7.0-11.0); Mono # (Auto) 1.1 th/mm3 (0.0-0.9); Mono % (Auto) 8.2 % (0.0-8.0); Neut # (Auto) 7.1 th/mm3 (1.8-7.7); Platelet Count 221 th/mm3 (150-450); Red Blood Count 4.35 mil/mm3 (4.50-5.90); Red Cell Distribution Width 13.7 % (11.6-17.2); White Blood Count 12.9 th/mm3 (4.0-11.0)
[2018-08-25 07:59] LABS: Albumin 3.4 g/dL (3.4-5.0); Anion Gap 6 meq/L (5-15); Aspartate Aminotransferase 15 U/L (15-37); Blood Urea Nitrogen 15 mg/dL (7-18); Carbon Dioxide 28.3 meq/L (21.0-32.0); Chloride 104 meq/L (98-107); Glomerular Filtration Rate 77 mL/min (>89); Glucose,Random 91 mg/dL (74-106); Potassium 4.2 meq/L (3.5-5.1); Sodium 138 meq/L (136-145)
[2018-08-25 08:00] LABS: Alanine Aminotransferase 27 U/L (12-78)
[2018-08-25 08:02] LABS: Alkaline Phosphatase 89 U/L (45-117); Total Protein 7.4 g/dL (6.4-8.2)
[2018-08-25] MEDS: Furosemide 40 MG Tablet PO SCH (08:10)
[2018-08-25] MEDS: Metoprolol Tartrate 50 MG Tablet PO SCH ×2 (08:10→21:02)
[2018-08-25] MEDS: Amiodarone 200 MG Tablet PO SCH (08:10)
[2018-08-25] MEDS ORDERED: dilTIAZem CD 180 MG Capsule PO SCH (09:00)
--- NOTE | 2018-08-25 15:22 | P.PNIM ---
Subjective Interval history: Chief Complaint: Rapid ventricular rate History of Present Illness: 53-year-old male with a past medical history of A. fib, CHF, alcoholic cardiomyopathy was sent to the ED by Dr. Stallings's office for admission to the hospital secondary to rapid ventricular response. Patient has gone for his routine follow-up visit today, and was found to have heart rate sustained in 140s however denies any symptoms. When patient arrived in the ED, he was however rate controlled and during my exam his heart rate was sustained in 70s. He has no other issues. [address] STALLINGS INPUT DW RN AND PT AND CM MAY HAVE PROCEDURE TOMORROW AM LABS Physical Exam Vital signs: Vital Signs 08/24/18 15:48 08/24/18 16:37 08/24/18 21:04 Temperature 98.3 F 97.9 F Pulse Rate 87 71 94 H Respiratory Rate 20 16 18 Blood Pressure 133/84 134/68 121/62 Pulse Oximetry 98 96 98 08/24/18 21:35 08/24/18 23:58 08/25/18 00:00 Temperature 97.9 F Pulse Rate 94 H 91 H 92 H Respiratory Rate 17 Blood Pressure 118/62 Pulse Oximetry 97 08/25/18 03:49 08/25/18 03:56 08/25/18 04:56 Temperature 97.5 F L Pulse Rate 144 H 143 H 141 H Respiratory Rate 18 18 Blood Pressure 138/64 109/76 Pulse Oximetry 95 96 08/25/18 05:03 08/25/18 05:18 08/25/18 05:33 Temperature Pulse Rate 136 H 112 H 115 H Respiratory Rate 18 18 18 Blood Pressure 99/66 L 100/60 106/65 Pulse Oximetry 95 97 08/25/18 08:00 08/25/18 09:00 08/25/18 12:00 Temperature 98.6 F 98.2 F Pulse Rate 112 H 93 H 73 Respiratory Rate 18 18 Blood Pressure 152/106 H 96/50 L Pulse Oximetry 97 99 Intake & Output 08/24/18 08/25/18 08/25/18 18:59 06:59 18:59 Intake Total 400 / 400 Output Total 900 / 900 Balance -500 / -500 Weight 107.955 kg 112.9 kg Intake: Oral 400 / 400 Output: Urine 900 / 900 Other: Weight On Admission 113.7 kg Narrative: GENERAL: NAD SKIN: Warm and dry. HEAD: Atraumatic. Normocephalic. EYES: Pupils equal and round. No scleral icterus. No injection or drainage. ENT: No nasal bleeding or discharge. Mucous membranes pink and moist. NECK: Trachea midline. No JVD. CARDIOVASCULAR: irreg Regular rate and rhythm. RESPIRATORY: No accessory muscle use. Clear to auscultation. Breath sounds equal bilaterally. GASTROINTESTINAL: Abdomen soft, non-tender, nondistended. Hepatic and splenic margins not palpable. MUSCULOSKELETAL: Extremities without clubbing, cyanosis, or edema. No obvious deformities. NEUROLOGICAL: Awake and alert. No obvious cranial nerve deficits. Motor grossly within normal limits. Five out of 5 muscle strength in the arms and legs. Normal speech. PSYCHIATRIC: Appropriate mood and affect; insight and judgment normal. Results - Labs CBC & Chem 7: 08/25/18 06:27 08/25/18 06:27 Laboratory Results - last 24 hr 08/24/18 08/24/18 08/24/18 16:20 16:20 16:20 WBC RBC Hgb Hct MCV MCH MCHC RDW Plt Count MPV Neut % (Auto) Lymph % (Auto) [place] % (Auto) Eos % (Auto) Baso % (Auto) Neut # (Auto) Lymph # (Auto) [place] # (Auto) Eos # (Auto) Baso # (Auto) WBC Differential Differential Comment PT 10.8 INR 1.1 Sodium Potassium Chloride Carbon Dioxide Anion Gap BUN Creatinine Estimated GFR Random Glucose Calcium Magnesium Total Bilirubin AST ALT Alkaline Phosphatase Total Creatine Kinase Troponin I B-Natriuretic Peptide 817 H Total Protein Albumin TSH Cancelled Urine Color Urine Clarity Urine pH Ur Specific [place] Urine Protein Urine Glucose (UA) Urine Ketones Urine Occult Blood Urine Nitrate Urine Bilirubin Urine Urobilinogen Ur Leukocyte Esterase Urine RBC Urine WBC Ur Squamous Epith Cells Urine Mucus Micro UA Comment Ur Microscopic Review Urine Culture Comments 08/24/18 08/24/18 08/24/18 16:20 16:20 17:24 WBC 12.7 H RBC 4.53 Hgb 15.3 Hct 44.9 MCV 99.1 MCH 33.8 MCHC 34.1 RDW 13.2 Plt Count 253 MPV 8.2 Neut % (Auto) 68.2 Lymph % (Auto) 22.0 [place] % (Auto) 8.1 H Eos % (Auto) 1.3 Baso % (Auto) 0.4 Neut # (Auto) 8.7 H Lymph # (Auto) 2.8 [place] # (Auto) 1.0 H Eos # (Auto) 0.2 Baso # (Auto) 0.0 WBC Differential . Differential Comment Auto diff final PT INR Sodium 138 Potassium 4.4 Chloride 104 Carbon Dioxide 26.3 Anion Gap 8 BUN 15 Creatinine 0.95 Estimated GFR 83 L Random Glucose 100 Calcium 8.4 L Magnesium 2.2 Total Bilirubin 0.3 AST 17 ALT 28 Alkaline Phosphatase 103 Total Creatine Kinase Troponin I Less than 0.02 L B-Natriuretic Peptide Total Protein 7.9 Albumin 3.6 TSH 0.929 Urine Color [place] Urine Clarity Cloudy H Urine pH 7.0 Ur Specific [place] 1.017 Urine Protein Negative Urine Glucose (UA) Negative Urine Ketones Negative Urine Occult Blood Negative Urine Nitrate Negative Urine Bilirubin Negative Urine Urobilinogen Less than 2 Ur Leukocyte Esterase Negative Urine RBC Less than 1 Urine WBC 1 Ur Squamous Epith Cells <1 Urine Mucus Few H Micro UA Comment Culture not ind Ur Microscopic Review Not Reportable Urine Culture Comments Culture not ind 08/24/18 08/25/18 08/25/18 23:12 06:27 06:27 WBC 12.9 H RBC 4.35 L Hgb 14.5 Hct 43.6 MCV 100.2 H MCH 33.3 MCHC 33.2 RDW 13.7 Plt Count 221 MPV 8.2 Neut % (Auto) 55.0 Lymph % (Auto) 34.4 [place] % (Auto) 8.2 H Eos % (Auto) 1.9 Baso % (Auto) 0.5 Neut # (Auto) 7.1 Lymph # (Auto) 4.4 [place] # (Auto) 1.1 H Eos # (Auto) 0.3 Baso # (Auto) 0.1 WBC Differential . Differential Comment Auto diff final PT INR Sodium 138 Potassium 4.2 Chloride 104 Carbon Dioxide 28.3 Anion Gap 6 BUN 15 Creatinine 1.01 Estimated GFR 77 L Random Glucose 91 Calcium 9.0 Magnesium Total Bilirubin 0.5 AST 15 ALT 27 Alkaline Phosphatase 89 Total Creatine Kinase 76 Troponin I Less than 0.02 L B-Natriuretic Peptide Total Protein 7.4 Albumin 3.4 TSH Urine Color Urine Clarity Urine pH Ur Specific [place] Urine Protein Urine Glucose (UA) Urine Ketones Urine Occult Blood Urine Nitrate Urine Bilirubin Urine Urobilinogen Ur Leukocyte Esterase Urine RBC Urine WBC Ur Squamous Epith Cells Urine Mucus Micro UA Comment Ur Microscopic Review Urine Culture Comments - Imaging Impressions Chest X-Ray 08/24/18 16:22 CONCLUSION: 1. No acute abnormality or significant interval change. Assessment and Plan - Plan 53-year-old man with Chronic A. fib History of AICD Alcohol cardiomyopathy History of cardiac ablation Consult Dr. Stallings for further evaluation for possible cardiac ablation Continue ACS ruled out per protocol Admit to CICU Resume outpatient medications DVT prophylaxis: Eliquis Code Status: FULL CODE Discussed Condition With: RN AND PT AND CM Discharge Planning: PENDING DR STALLINGS CLEARANCE
--- NOTE | 2018-08-25 17:00 | ECG ---
Date Performed: 08/24/2018 Time Performed: 16:25:06 PTAGE: 53 years EKG: ATRIAL FLUTTER WITH VARIABLE CONDUCTION Left anterior fascicular block POSSIBLE LEFT ATRIAL ENLARGEMENT INTRAVENTRICULAR CONDUCTION DELAY Since the previous tracing, no significant change note d ABNORMAL ECG NO PREVIOUS TRACING DOCTOR: Myrna Awad Interpretating Date/Time 08/25/2018 17:00:32
[2018-08-26 07:16] LABS: INR 1.1 Ratio; Prothrombin Time 11.3 sec (9.8-11.6)
[2018-08-26 07:19] LABS: Baso % (Auto) 0.4 % (0.0-2.0); Eos # (Auto) 0.2 th/mm3 (0.0-0.4); Eos % (Auto) 1.9 % (0.0-4.0); Hematocrit 43.3 % (39.0-51.0); Hemoglobin 14.7 gm/dL (13.0-17.0); Lymph # (Auto) 3.8 th/mm3 (1.0-4.8); Lymph % (Auto) 31.3 % (9.0-44.0); Mean Corpuscular HGB Conc 33.9 % (32.0-36.0); Mean Corpuscular Hemoglobin 33.6 pg (27.0-34.0); Mean Corpuscular Volume 99.1 fL (80.0-100.0); Mono % (Auto) 8.6 % (0.0-8.0); Neut # (Auto) 7.1 th/mm3 (1.8-7.7); Neut % (Auto) 57.8 % (16.0-70.0); Platelet Count 214 th/mm3 (150-450); Red Blood Count 4.36 mil/mm3 (4.50-5.90); Red Cell Distribution Width 13.3 % (11.6-17.2); White Blood Count 12.3 th/mm3 (4.0-11.0)
[2018-08-26] MEDS: Ascorbic Acid 500 MG Tablet PO SCH (08:02)
[2018-08-26] MEDS: Metoprolol Tartrate 50 MG Tablet PO SCH ×2 (08:02→20:04)
[2018-08-26] MEDS: Amiodarone 200 MG Tablet PO SCH (08:03)
[2018-08-26] MEDS: Magnesium Oxide 400 MG Tablet PO SCH (08:05)
[2018-08-26 08:07] LABS: Alanine Aminotransferase 26 U/L (12-78); Albumin 3.2 g/dL (3.4-5.0); Alkaline Phosphatase 90 U/L (45-117); Anion Gap 9 meq/L (5-15); Aspartate Aminotransferase 14 U/L (15-37); Blood Urea Nitrogen 18 mg/dL (7-18); Carbon Dioxide 25.7 meq/L (21.0-32.0); Chloride 104 meq/L (98-107); Glomerular Filtration Rate 81 mL/min (>89); Glucose,Random 88 mg/dL (74-106); Potassium 3.9 meq/L (3.5-5.1); Sodium 139 meq/L (136-145); Total Protein 7.3 g/dL (6.4-8.2)
[2018-08-26] MEDS ORDERED: GARLIC PO SCH (09:00)
--- NOTE | 2018-08-26 10:46 | MB ---
cc: Parul Means MD DATE: 08/25/2018 REASON FOR CONSULTATION: Atrial fibrillation, atrial tachycardia, fast ventricular response. HISTORY OF PRESENT ILLNESS: The patient is a 53-year-old gentleman with history of congestive heart failure, cardiomyopathy, previous fibrillation ablation around 2 years ago, heart failure, previous defibrillator inserted. Was at the office, heart rate was in the 140's, was sent to the emergency room for evaluation and management. I was consulted for further management. The chart was reviewed. The patient was evaluated. ALLERGIES: ESMOLOL. SOCIAL HISTORY: The gentleman still drinking. FAMILY HISTORY: Noncontributory to his current medical condition. MEDICATIONS: Currently, the patient is on: 1. Amiodarone 200 mg a day. 2. Eliquis 5 mg twice a day. 3. Cardizem-CD 180 mg a day. 4. He is on Lasix. 5. He is on allopurinol. 6. Lorazepam. 7. Metoprolol 50 mg twice a day. REVIEW OF SYSTEMS: The patient with palpitation. No chest pain, no chest discomfort. No fever. PHYSICAL EXAMINATION: GENERAL: Alert, fully oriented. VITAL SIGNS: Blood pressure and evaluation was 120/80, pulse 78. ____ 95-100, respiratory rate 18. LUNGS: Ventilated. CARDIOVASCULAR: S1, S2. Regular. ABDOMEN: Soft. No mass. EXTREMITIES: No edema. LABORATORY DATA: Electrocardiogram indicates atrial tachyarrhythmia, atrioventricular conduction delay, diffuse ST changes. LABORATORY DATA: Hemoglobin 14.5, white blood cell 12.9. INR 1.1. Potassium is 4.2, creatinine 1.01. Troponin less than 0.02. ASSESSMENT AND RECOMMENDATIONS: The patient has atrial fibrillation, atrial tachycardia. Very difficult to control. He is on anticoagulation for the past 3 weeks. He is on Eliquis. For now, I am going to cardiovert this gentleman. If back in atrial fibrillation, atrial tachyarrhythmia, then ablation will be considered. Case discussed with him. I will monitor him during hospitalization. MD RYAN Munguia/jesus/marie , 09:11 AM , 09:19 AM
[2018-08-26 13:50] LABS: Hemoglobin A1c 5.8 % (4.3-6.0)
--- NOTE | 2018-08-26 14:28 | P.PNIM ---
Subjective Interval history: Chief Complaint: Rapid ventricular rate History of Present Illness: 53-year-old male with a past medical history of A. fib, CHF, alcoholic cardiomyopathy was sent to the ED by Dr. Stallings's office for admission to the hospital secondary to rapid ventricular response. Patient has gone for his routine follow-up visit today, and was found to have heart rate sustained in 140s however denies any symptoms. When patient arrived in the ED, he was however rate controlled and during my exam his heart rate was sustained in 70s. He has no other issues. 08-[address] STALLINGS INPUT DW RN AND PT AND CM MAY HAVE PROCEDURE TOMORROW AM LABS 08-26 TO HAVE CARDIOVERSION WITH DR STALLINGS TODAY IF STABLE AND LABS STABLE DC TO HOME TOMORROW Physical Exam Vital signs: Vital Signs 08/25/18 16:00 08/25/18 19:56 08/25/18 20:00 Temperature 97.9 F 98.4 F Pulse Rate 95 H 114 H 94 H Respiratory Rate 18 22 Blood Pressure 120/60 113/68 Pulse Oximetry 95 97 08/25/18 21:12 08/25/18 21:50 08/25/18 22:12 Temperature Pulse Rate 129 H 119 H 93 H Respiratory Rate 18 18 18 Blood Pressure 113/69 118/59 L 121/72 Pulse Oximetry 98 96 08/25/18 23:57 08/26/18 00:00 08/26/18 02:20 Temperature 98.0 F Pulse Rate 94 H 64 135 H Respiratory Rate 20 18 Blood Pressure 115/75 117/80 Pulse Oximetry 95 97 08/26/18 03:28 08/26/18 03:38 08/26/18 03:47 Temperature Pulse Rate 140 H 114 H Respiratory Rate 18 18 Blood Pressure 113/72 116/62 102/64 Pulse Oximetry 98 95 08/26/18 03:50 08/26/18 04:00 08/26/18 07:50 Temperature 97.8 F Pulse Rate 103 H 140 H 144 H Respiratory Rate 20 Blood Pressure 126/68 Pulse Oximetry 95 08/26/18 08:00 Temperature 97.2 F L Pulse Rate 144 H Respiratory Rate 20 Blood Pressure 115/73 Pulse Oximetry 96 Intake & Output 08/25/18 08/26/18 08/26/18 18:59 06:59 18:59 Intake Total 1200 / 1200 Balance 1200 / 1200 Intake: Oral 1200 / 1200 Other: Date of Last Bowel Movement 08/25/18 08/25/18 # Bowel Movements 1 Narrative: GENERAL: NAD SKIN: Warm and dry. HEAD: Atraumatic. Normocephalic. EYES: Pupils equal and round. No scleral icterus. No injection or drainage. ENT: No nasal bleeding or discharge. Mucous membranes pink and moist. NECK: Trachea midline. No JVD. CARDIOVASCULAR: irreg Regular rate and rhythm. RESPIRATORY: No accessory muscle use. Clear to auscultation. Breath sounds equal bilaterally. GASTROINTESTINAL: Abdomen soft, non-tender, nondistended. Hepatic and splenic margins not palpable. MUSCULOSKELETAL: Extremities without clubbing, cyanosis, or edema. No obvious deformities. NEUROLOGICAL: Awake and alert. No obvious cranial nerve deficits. Motor grossly within normal limits. Five out of 5 muscle strength in the arms and legs. Normal speech. PSYCHIATRIC: Appropriate mood and affect; insight and judgment normal. Results - Labs CBC & Chem 7: 08/26/18 05:49 08/26/18 05:49 Laboratory Results - last 24 hr 08/26/18 08/26/18 08/26/18 05:49 05:49 05:49 WBC 12.3 H RBC 4.36 L Hgb 14.7 Hct 43.3 MCV 99.1 MCH 33.6 MCHC 33.9 RDW 13.3 Plt Count 214 MPV 8.0 Neut % (Auto) 57.8 Lymph % (Auto) 31.3 [place] % (Auto) 8.6 H Eos % (Auto) 1.9 Baso % (Auto) 0.4 Neut # (Auto) 7.1 Lymph # (Auto) 3.8 [place] # (Auto) 1.0 H Eos # (Auto) 0.2 Baso # (Auto) 0.0 WBC Differential . Differential Comment Auto diff final PT 11.3 INR 1.1 Sodium Potassium Chloride Carbon Dioxide Anion Gap BUN Creatinine Estimated GFR Random Glucose Calcium Phosphorus Magnesium Total Bilirubin AST ALT Alkaline Phosphatase Ammonia Total Protein Albumin TSH Free T4 1.22 08/26/18 08/26/18 05:49 05:49 WBC RBC Hgb Hct MCV MCH MCHC RDW Plt Count MPV Neut % (Auto) Lymph % (Auto) [place] % (Auto) Eos % (Auto) Baso % (Auto) Neut # (Auto) Lymph # (Auto) [place] # (Auto) Eos # (Auto) Baso # (Auto) WBC Differential Differential Comment PT INR Sodium 139 Potassium 3.9 Chloride 104 Carbon Dioxide 25.7 Anion Gap 9 BUN 18 Creatinine 0.97 Estimated GFR 81 L Random Glucose 88 Calcium 8.0 L D Phosphorus 4.0 Magnesium 2.0 Total Bilirubin 0.4 AST 14 L ALT 26 Alkaline Phosphatase 90 Ammonia 33 H Total Protein 7.3 Albumin 3.2 L TSH 1.140 Free T4 - Imaging ITS Impressions Chest X-Ray 08/24/18 16:22 CONCLUSION: 1. No acute abnormality or significant interval change. - Procedures CARDIOVERSION 08-26 Assessment and Plan - Plan 53-year-old man with Chronic A. fib History of AICD Alcohol cardiomyopathy History of cardiac ablation Consult Dr. Stallings for further evaluation for possible CARDIOVERSION TODAY Continue ACS ruled out per protocol Admit to CICU Resume outpatient medications DVT prophylaxis: Eliquis Code Status: FULL CODE Discussed Condition With: RN AND PT AND CM AND AND DR STALLINGS Discharge Planning: PENDING DR STALLINGS CLEARANCE
[2018-08-26] MEDS: Furosemide 40 MG Tablet PO SCH (15:28)
[2018-08-26] MEDS ORDERED: dilTIAZem 60 MG Tablet PO ONE (20:00)
[2018-08-27 07:39] LABS: Baso # (Auto) 0.1 th/mm3 (0.0-0.2); Baso % (Auto) 0.7 % (0.0-2.0); Eos # (Auto) 0.3 th/mm3 (0.0-0.4); Eos % (Auto) 2.5 % (0.0-4.0); Hematocrit 44.8 % (39.0-51.0); Hemoglobin 15.2 gm/dL (13.0-17.0); Lymph # (Auto) 3.2 th/mm3 (1.0-4.8); Lymph % (Auto) 29.1 % (9.0-44.0); Mean Corpuscular HGB Conc 33.8 % (32.0-36.0); Mean Corpuscular Volume 100.5 fL (80.0-100.0); Mean Platelet Volume 8.3 fL (7.0-11.0); Mono # (Auto) 0.9 th/mm3 (0.0-0.9); Mono % (Auto) 8.6 % (0.0-8.0); Neut # (Auto) 6.5 th/mm3 (1.8-7.7); Neut % (Auto) 59.1 % (16.0-70.0); Platelet Count 179 th/mm3 (150-450); Red Blood Count 4.46 mil/mm3 (4.50-5.90); Red Cell Distribution Width 13.3 % (11.6-17.2)
[2018-08-27 08:05] LABS: Alanine Aminotransferase 27 U/L (12-78); Albumin 3.3 g/dL (3.4-5.0); Anion Gap 8 meq/L (5-15); Aspartate Aminotransferase 17 U/L (15-37); Blood Urea Nitrogen 19 mg/dL (7-18); Calcium 8.3 mg/dL (8.5-10.1); Carbon Dioxide 28.7 meq/L (21.0-32.0); Chloride 104 meq/L (98-107); Glomerular Filtration Rate 82 mL/min (>89); Glucose,Random 86 mg/dL (74-106); Magnesium 2.3 mg/dL (1.5-2.5); Phosphorus 3.6 mg/dL (2.5-4.9); Potassium 3.7 meq/L (3.5-5.1); Sodium 141 meq/L (136-145)
[2018-08-27 08:07] LABS: Alkaline Phosphatase 94 U/L (45-117); Total Protein 7.5 g/dL (6.4-8.2)
[2018-08-27] MEDS ORDERED: dilTIAZem CD 240 MG Capsule PO SCH (09:00)
[2018-08-27] MEDS: Amiodarone 200 MG Tablet PO SCH (09:03)
[2018-08-27] MEDS: Ascorbic Acid 500 MG Tablet PO SCH (09:03)
[2018-08-27] MEDS: Metoprolol Tartrate 50 MG Tablet PO SCH (09:04)
[2018-08-27] MEDS: Furosemide 40 MG Tablet PO SCH (09:04)
[2018-08-27 10:11] VITALS: RESP 14
[2018-08-27] MEDS: Magnesium Oxide 400 MG Tablet PO SCH (11:37)
[2018-08-27 12:55] VITALS: BP 113/61; PULSE 65; TEMP 97.8; O2SAT 97
--- NOTE | 2018-08-27 14:39 | P.PNIM ---
Subjective Interval history: Chief Complaint: Rapid ventricular rate History of Present Illness: 53-year-old male with a past medical history of A. fib, CHF, alcoholic cardiomyopathy was sent to the ED by Dr. Stallings's office for admission to the hospital secondary to rapid ventricular response. Patient has gone for his routine follow-up visit today, and was found to have heart rate sustained in 140s however denies any symptoms. When patient arrived in the ED, he was however rate controlled and during my exam his heart rate was sustained in 70s. He has no other issues. 08-[address] STALLINGS INPUT MADAN RN AND PT AND CM MAY HAVE PROCEDURE TOMORROW AM LABS 08-26 TO HAVE CARDIOVERSION WITH DR STALLINGS TODAY IF STABLE AND LABS STABLE DC TO HOME TOMORROW 08-27 was CARDIOVERTED YESTERDAY WITH DR STALLINGS DOING WELL DC TO HOME TODAY MADAN RN AND PT AND CM Physical Exam Vital signs: Vital Signs 08/26/18 16:00 08/26/18 20:00 08/27/18 00:00 Temperature 98 F 98 F 97.9 F Pulse Rate 82 75 71 Respiratory Rate 20 17 17 Blood Pressure 94/69 L 111/69 108/59 L Pulse Oximetry 96 96 97 08/27/18 04:00 08/27/18 08:00 08/27/18 09:00 Temperature 97.8 F 97.0 F L Pulse Rate 76 75 73 Respiratory Rate 17 14 Blood Pressure 164/71 H 123/63 Pulse Oximetry 97 96 08/27/18 12:00 Temperature 97.8 F Pulse Rate 65 Respiratory Rate 14 Blood Pressure 113/61 Pulse Oximetry 97 Intake & Output 08/26/18 08/27/18 08/27/18 18:59 06:59 18:59 Intake Total 1000 / 1000 Output Total 1500 / 1500 Balance -500 / -500 Weight 112.1 kg Intake: Oral 1000 / 1000 Output: Urine 1500 / 1500 Other: Date of Last Bowel Movement 08/25/18 08/25/18 # Bowel Movements 1 Narrative: GENERAL: NAD SKIN: Warm and dry. HEAD: Atraumatic. Normocephalic. EYES: Pupils equal and round. No scleral icterus. No injection or drainage. ENT: No nasal bleeding or discharge. Mucous membranes pink and moist. NECK: Trachea midline. No JVD. CARDIOVASCULAR: Regular rate and rhythm. S1,S2 NO S3 OR S4 RESPIRATORY: No accessory muscle use. Clear to auscultation. Breath sounds equal bilaterally. GASTROINTESTINAL: Abdomen soft, non-tender, nondistended. Hepatic and splenic margins not palpable. MUSCULOSKELETAL: Extremities without clubbing, cyanosis, or edema. No obvious deformities. NEUROLOGICAL: Awake and alert. No obvious cranial nerve deficits. Motor grossly within normal limits. Five out of 5 muscle strength in the arms and legs. Normal speech. PSYCHIATRIC: Appropriate mood and affect; insight and judgment normal. Results - Labs CBC & Chem 7: 08/27/18 05:59 08/27/18 05:59 Laboratory Results - last 24 hr 08/26/18 08/27/18 08/27/18 05:49 05:59 05:59 WBC 11.0 RBC 4.46 L Hgb 15.2 Hct 44.8 MCV 100.5 H MCH 34.0 MCHC 33.8 RDW 13.3 Plt Count 179 MPV 8.3 Neut % (Auto) 59.1 Lymph % (Auto) 29.1 [place] % (Auto) 8.6 H Eos % (Auto) 2.5 Baso % (Auto) 0.7 Neut # (Auto) 6.5 Lymph # (Auto) 3.2 [place] # (Auto) 0.9 Eos # (Auto) 0.3 Baso # (Auto) 0.1 WBC Differential . Differential Comment Auto diff final Sodium 141 Potassium 3.7 Chloride 104 Carbon Dioxide 28.7 Anion Gap 8 BUN 19 H Creatinine 0.96 Estimated GFR 82 L Random Glucose 86 Hemoglobin A1c 5.8 Calcium 8.3 L Phosphorus 3.6 Magnesium 2.3 Total Bilirubin 0.4 AST 17 ALT 27 Alkaline Phosphatase 94 Total Protein 7.5 Albumin 3.3 L - Imaging ITS Impressions Chest X-Ray 08/24/18 16:22 CONCLUSION: 1. No acute abnormality or significant interval change. - Procedures CARDIOVERSION 08-26 Assessment and Plan - Plan 53-year-old man with Chronic A. fib History of AICD Alcohol cardiomyopathy History of cardiac ablation Consult Dr. Stallings for further evaluation for possible CARDIOVERSION TODAY Continue ACS ruled out per protocol Admit to CICU Resume outpatient medications SP CARDIOVERSION ON 08/26 DC TO HOME TODAY SEE RX DVT prophylaxis: Eliquis Code Status: FULL CODE Discussed Condition With: RN AND PT AND CM Discharge Planning: DC TO HOME TODAY
--- NOTE | 2018-08-27 14:43 | P.DS ---
Date of admission: 08/24/18 17:56 Primary care physician: Parul Stallings MD Attending physician on discharge: Nav Workman Anticipated date of discharge: 08/27/18 Brief History from admission: 53-year-old male with a past medical history of A. fib, CHF, alcoholic cardiomyopathy was sent to the ED by Dr. Stallings's office for admission to the hospital secondary to rapid ventricular response. Patient has gone for his routine follow-up visit today, and was found to have heart rate sustained in 140s however denies any symptoms. When patient arrived in the ED, he was however rate controlled and during my exam his heart rate was sustained in 70s. He has no other issues. Patient update on day of discharge: Chief Complaint: Rapid ventricular rate History of Present Illness: 53-year-old male with a past medical history of A. fib, CHF, alcoholic cardiomyopathy was sent to the ED by Dr. Stallings's office for admission to the hospital secondary to rapid ventricular response. Patient has gone for his routine follow-up visit today, and was found to have heart rate sustained in 140s however denies any symptoms. When patient arrived in the ED, he was however rate controlled and during my exam his heart rate was sustained in 70s. He has no other issues. 12-[address] STALLINGS INPUT MADAN RN AND PT AND CM MAY HAVE PROCEDURE TOMORROW AM LABS 12-7 TO HAVE CARDIOVERSION WITH DR STALLINGS TODAY IF STABLE AND LABS STABLE DC TO HOME TOMORROW 12-8 was CARDIOVERTED YESTERDAY WITH DR STALLINGS DOING WELL DC TO HOME TODAY MADAN GEORGES AND PT AND CM DS: Diagnosis - Discharge Diagnosis (1) REMY (acute kidney injury) Status: Acute (2) Arrhythmia Status: Acute (3) CHF (congestive heart failure) Status: Acute (4) Leukocytosis Status: Acute (5) Nutrition, metabolism, and development symptoms Status: Acute DS: Medications - Discharge Medications Prescriptions: amiodarone 200 mg PO DAILY #30 tab apixaban [Eliquis] 5 mg PO BID #60 tab diltiazem HCl 240 mg PO DAILY #30 cap metoprolol tartrate 50 mg PO BID #60 tab DS: Summary Hospital Course: Chief Complaint: Rapid ventricular rate History of Present Illness: 53-year-old male with a past medical history of A. fib, CHF, alcoholic cardiomyopathy was sent to the ED by Dr. Stallings's office for admission to the hospital secondary to rapid ventricular response. Patient has gone for his routine follow-up visit today, and was found to have heart rate sustained in 140s however denies any symptoms. When patient arrived in the ED, he was however rate controlled and during my exam his heart rate was sustained in 70s. He has no other issues. 08-[address] STALLINGS INPUT MAD[facility] RN AND PT AND CM MAY HAVE PROCEDURE TOMORROW AM LABS 08-26 TO HAVE CARDIOVERSION WITH DR STALLINGS TODAY IF STABLE AND LABS STABLE DC TO HOME TOMORROW 08-27 was CARDIOVERTED YESTERDAY WITH DR STALLINGS DOING WELL DC TO HOME TODAY MADAN RN AND PT AND CM - Time Spent with Patient Total time spent providing and/or coordinating discharge services: Greater than 30 minutes - Quality: VTE Deep Vein Thrombosis/Pulmonary Embolism Present on Admission: No Exam Vital signs: Vital Signs 08/26/18 16:00 08/26/18 20:00 08/27/18 00:00 Temperature 98 F 98 F 97.9 F Pulse Rate 82 75 71 Respiratory Rate 20 17 17 Blood Pressure 94/69 L 111/69 108/59 L Pulse Oximetry 96 96 97 08/27/18 04:00 08/27/18 08:00 08/27/18 09:00 Temperature 97.8 F 97.0 F L Pulse Rate 76 75 73 Respiratory Rate 17 14 Blood Pressure 164/71 H 123/63 Pulse Oximetry 97 96 08/27/18 12:00 Temperature 97.8 F Pulse Rate 65 Respiratory Rate 14 Blood Pressure 113/61 Pulse Oximetry 97 Intake & Output 08/26/18 08/27/18 08/27/18 18:59 06:59 18:59 Intake Total 1000 / 1000 Output Total 1500 / 1500 Balance -500 / -500 Weight 112.1 kg Intake: Oral 1000 / 1000 Output: Urine 1500 / 1500 Other: Date of Last Bowel Movement 08/25/18 08/25/18 # Bowel Movements 1 Narrative: GENERAL: NAD SKIN: Warm and dry. HEAD: Atraumatic. Normocephalic. EYES: Pupils equal and round. No scleral icterus. No injection or drainage. ENT: No nasal bleeding or discharge. Mucous membranes pink and moist. NECK: Trachea midline. No JVD. CARDIOVASCULAR: Regular rate and rhythm. S1,S2 NO S3 OR S4 RESPIRATORY: No accessory muscle use. Clear to auscultation. Breath sounds equal bilaterally. GASTROINTESTINAL: Abdomen soft, non-tender, nondistended. Hepatic and splenic margins not palpable. MUSCULOSKELETAL: Extremities without clubbing, cyanosis, or edema. No obvious deformities. NEUROLOGICAL: Awake and alert. No obvious cranial nerve deficits. Motor grossly within normal limits. Five out of 5 muscle strength in the arms and legs. Normal speech. PSYCHIATRIC: Appropriate mood and affect; insight and judgment normal. Results Procedures completed during hospitalization: CARDIOVERSION 12-7 Completed studies during hospitalization: Laboratory Results WBC 11.0 th/mm3 (4.0-11.0) 08/27/18 05:59 RBC 4.46 mil/mm3 (4.50-5.90) L 08/27/18 05:59 Hgb 15.2 gm/dL (13.0-17.0) 08/27/18 05:59 Hct 44.8 % (39.0-51.0) 08/27/18 05:59 MCV 100.5 fL (80.0-100.0) H 08/27/18 05:59 MCH 34.0 pg (27.0-34.0) 08/27/18 05:59 MCHC 33.8 % (32.0-36.0) 08/27/18 05:59 RDW 13.3 % (11.6-17.2) 08/27/18 05:59 Plt Count 179 th/mm3 (150-450) 08/27/18 05:59 MPV 8.3 fL (7.0-11.0) 08/27/18 05:59 Neut % (Auto) 59.1 % (16.0-70.0) 08/27/18 05:59 Lymph % (Auto) 29.1 % (9.0-44.0) 08/27/18 05:59 Ford % (Auto) 8.6 % (0.0-8.0) H 08/27/18 05:59 Eos % (Auto) 2.5 % (0.0-4.0) 08/27/18 05:59 Baso % (Auto) 0.7 % (0.0-2.0) 08/27/18 05:59 Neut # (Auto) 6.5 th/mm3 (1.8-7.7) 08/27/18 05:59 Lymph # (Auto) 3.2 th/mm3 (1.0-4.8) 08/27/18 05:59 Ford # (Auto) 0.9 th/mm3 (0.0-0.9) 08/27/18 05:59 Eos # (Auto) 0.3 th/mm3 (0.0-0.4) 08/27/18 05:59 Baso # (Auto) 0.1 th/mm3 (0.0-0.2) 08/27/18 05:59 WBC Differential . 08/27/18 05:59 Differential Comment Auto diff final 08/27/18 05:59 PT 11.3 sec (9.8-11.6) 08/26/18 05:49 INR 1.1 Ratio 08/26/18 05:49 Sodium 141 meq/L (136-145) 08/27/18 05:59 Potassium 3.7 meq/L (3.5-5.1) 08/27/18 05:59 Chloride 104 meq/L (98-107) 08/27/18 05:59 Carbon Dioxide 28.7 meq/L (21.0-32.0) 08/27/18 05:59 Anion Gap 8 meq/L (5-15) 08/27/18 05:59 BUN 19 mg/dL (7-18) H 08/27/18 05:59 Creatinine 0.96 mg/dL (0.60-1.30) 08/27/18 05:59 Estimated GFR 82 mL/min (>89) L 08/27/18 05:59 Random Glucose 86 mg/dL (74-106) 08/27/18 05:59 Hemoglobin A1c 5.8 % (4.3-6.0) 08/26/18 05:49 Calcium 8.3 mg/dL (8.5-10.1) L 08/27/18 05:59 Phosphorus 3.6 mg/dL (2.5-4.9) 08/27/18 05:59 Magnesium 2.3 mg/dL (1.5-2.5) 08/27/18 05:59 Total Bilirubin 0.4 mg/dL (0.2-1.0) 08/27/18 05:59 AST 17 U/L (15-37) 08/27/18 05:59 ALT 27 U/L (12-78) 08/27/18 05:59 Alkaline Phosphatase 94 U/L (45-117) 08/27/18 05:59 Ammonia 33 mcmol/L (11-32) H 08/26/18 05:49 Total Creatine Kinase 76 U/L (39-308) 08/24/18 23:12 Troponin I Less than 0.02 ng/mL (0.02-0.05) L 08/24/18 23:12 B-Natriuretic Peptide 817 pg/mL (0-100) H 08/24/18 16:20 Total Protein 7.5 g/dL (6.4-8.2) 08/27/18 05:59 Albumin 3.3 g/dL (3.4-5.0) L 08/27/18 05:59 TSH 1.140 uIU/mL (0.358-3.740) 08/26/18 05:49 Free T4 1.22 ng/dL (0.76-1.46) 08/26/18 05:49 Urine Color Paula (Yellw/Straw) 08/24/18 17:24 Urine Clarity Cloudy (Clear) H 08/24/18 17:24 Urine pH 7.0 (5.0-8.5) 08/24/18 17:24 Ur Specific Por[place] 1.017 (1.002-1.035) 08/24/18 17:24 Urine Protein Negative mg/dL (Neg-Trace) 08/24/18 17:24 Urine Glucose (UA) Negative mg/dL (Negative) 08/24/18 17:24 Urine Ketones Negative mg/dL (Negative) 08/24/18 17:24 Urine Occult Blood Negative (Negative) 08/24/18 17:24 Urine Nitrate Negative (Negative) 08/24/18 17:24 Urine Bilirubin Negative (Negative) 08/24/18 17:24 Urine Urobilinogen Less than 2 mg/dL (Less than 2) 08/24/18 17:24 Ur Leukocyte Esterase Negative (Negative) 08/24/18 17:24 Urine RBC Less than 1 /hpf (0-3) 08/24/18 17:24 Urine WBC 1 /hpf (0-5) 08/24/18 17:24 Ur Squamous Epith Cells <1 /hpf (0-5) 08/24/18 17:24 Urine Mucus Few /lpf (Occasional) H 08/24/18 17:24 Micro UA Comment Culture not ind 08/24/18 17:24 Ur Microscopic Review Not Reportable 08/24/18 17:24 Urine Culture Comments Culture not ind 08/24/18 17:24 Impressions Chest X-Ray 08/24/18 16:22 CONCLUSION: 1. No acute abnormality or significant interval change. Labs on day of discharge: Labs from last 24 hours 08/27/18 08/27/18 08/26/18 05:59 05:59 05:49 WBC 11.0 RBC 4.46 L Hgb 15.2 Hct 44.8 MCV 100.5 H MCH 34.0 MCHC 33.8 RDW 13.3 Plt Count 179 MPV 8.3 Neut % (Auto) 59.1 Lymph % (Auto) 29.1 Ford % (Auto) 8.6 H Eos % (Auto) 2.5 Baso % (Auto) 0.7 Neut # (Auto) 6.5 Lymph # (Auto) 3.2 Ford # (Auto) 0.9 Eos # (Auto) 0.3 Baso # (Auto) 0.1 WBC Differential . Differential Comment Auto diff final Sodium 141 Potassium 3.7 Chloride 104 Carbon Dioxide 28.7 Anion Gap 8 BUN 19 H Creatinine 0.96 Estimated GFR 82 L Random Glucose 86 Hemoglobin A1c 5.8 Calcium 8.3 L Phosphorus 3.6 Magnesium 2.3 Total Bilirubin 0.4 AST 17 ALT 27 Alkaline Phosphatase 94 Total Protein 7.5 Albumin 3.3 L - Impressions ITS Impressions Chest X-Ray 08/24/18 16:22 CONCLUSION: 1. No acute abnormality or significant interval change. Discharge Plan - Discharge Disposition Patient Disposition: 01 Discharge Home - Discharge Condition Condition: Good - Discharge Order Discharge Orders: Discharge Order (Routine); Ordered 08/27/18 Ordered By: Nav Workman - Discharge Details Anticipated Discharge Date: 08/27/18 Discharge Comment: DC TO HOME TODAY - Physicians Team Primary Care Provider: Parul Stallings Attending Provider: Nav Workman Other Providers: Parul Stallings MD
== END 2018-08-27 16:07 | disposition home or self-care (01) ==
LOC: NEPC 15:39 → NEDA 17:56 → INTOOBSV 17:56 → NEDA 20:10 → N04 20:13
PROVIDERS: ADMIT Hospitalist; ATTEND Hospitalist